=== PATIENT | female | born 1975 | race Caucasian/White ===

== ENCOUNTER 2016-08-21 15:01 | Emergency (ER) | payer OTHER ==
[2016-08-21] MEDS ORDERED: diphenhydrAMINE INJ 50 MG/ML VIAL IVP STA (16:51)
[2016-08-21] MEDS ORDERED: SODIUM CHLORIDE 0.9% 1,000 ML IV ONE (16:51)
[2016-08-21] MEDS ORDERED: PROCHLORPERAZINE 10 MG/2 ML VIAL IVP STA (16:51)
[2016-08-21] MEDS ORDERED: ACETAMINOPHEN 1,000 MG/100 ML 100 ML IV STA (16:51)
[2016-08-21] MEDS ORDERED: PROCHLORPERAZINE 10 MG/2 ML VIAL ONE (16:55)
[2016-08-21] MEDS ORDERED: diphenhydrAMINE INJ 50 MG/ML VIAL ONE (16:55)
[2016-08-21] MEDS ORDERED: ACETAMINOPHEN 1,000 MG/100 ML 100 ML IV ONE (16:55)
== END 2016-08-21 18:28 | disposition home or self-care (01) ==
DX: R51 Headache (principal)
CPT/HCPCS: 36415; 80048; 85025; 96374; 96375; 99283; 99284; J0131

== ENCOUNTER 2016-09-17 07:38 | Outpatient (CLI) | payer OTHER | END 2016-09-17 07:39 | disposition home or self-care (01) | DX: R51 Headache (principal) ==

== ENCOUNTER 2016-10-05 13:55 | Emergency (ER) | payer OTHER ==
[2016-10-05] MEDS ORDERED: traMADol 50 MG TABLET PO STA (16:01)
[2016-10-05] MEDS ORDERED: traMADol 50 MG TABLET PO ONE (16:06)
== END 2016-10-05 16:30 | disposition home or self-care (01) ==
DX: R51 Headache (principal); K21.9 Gastro-esophageal reflux disease without esophagitis; M79.7 Fibromyalgia
CPT/HCPCS: 99283; A9270

== ENCOUNTER 2016-10-08 19:58 | Emergency (ER) | payer OTHER ==
[2016-10-08] MEDS ORDERED: NEOMYCIN/POLYMYX/HC OTIC DROPS RIGHTEAR STA (20:25)
[2016-10-08] MEDS ORDERED: NEOMYCIN/POLYMYX/HC OTIC DROPS ONE (20:34)
== END 2016-10-08 20:41 | disposition home or self-care (01) ==
DX: H60.501 Unspecified acute noninfective otitis externa, right ear (principal)
CPT/HCPCS: 99283; A9270

== ENCOUNTER 2017-02-14 05:54 | Emergency (ER) | payer OTHER ==
[2017-02-14] MEDS ORDERED: SODIUM CHLORIDE 0.9% 1,000 ML IV ONE (06:09)
[2017-02-14] MEDS ORDERED: ONDANSETRON 4 MG/2 ML VIAL IVP STA (06:09)
[2017-02-14] MEDS ORDERED: PROCHLORPERAZINE INJ 10 MG in SODIUM CHLORIDE 0.9% 50 ML IV ONE (06:20)
[2017-02-14] MEDS ORDERED: diphenhydrAMINE INJ 50 MG/ML VIAL IVP STA (06:20)
[2017-02-14] MEDS ORDERED: diphenhydrAMINE INJ 50 MG/ML VIAL ONE (06:27)
[2017-02-14] MEDS ORDERED: ONDANSETRON 4 MG/2 ML VIAL ONE (06:28)
[2017-02-14] MEDS ORDERED: PROCHLORPERAZINE 10 MG/2 ML VIAL ONE (06:28)
[2017-02-14] MEDS ORDERED: SODIUM CHLORIDE FLUSH 0.9% 10 ML SYRINGE IVP ONE ×2 (06:30→07:57)
--- NOTE | 2017-02-14 06:44 | ED Physician Documentation ---
History of Present Illness - Stated complaint Stated Complaint: VOMITING,DIZZINESS - Chief complaint Chief Complaint: Abd Pain - Additonal information Additional information: Patient is a 41-year-old female with a history of fibromyalgia who presents with acute onset of nausea and vomiting and dizziness. Her said that she was clammy and needed help walking to the bathroom. Patient describes a spinning sensation worse with positional changes. She has a history of the same thing happened years ago when she was diagnosed with vertigo. She denies any headache. There is no chest pain, shortness of breath just nausea vomiting worse with positional changes and a feeling of unsteadiness. There is no focal numbness tingling or weakness. She was well yesterday. She did report having a cold a week or 2 ago that was moderate in severity. Review of systems: For pertinent positive and negatives in the review of systems please see the history of present illness, otherwise all other systems have been reviewed and are negative. Dragon disclaimer: Parts of this medical record were created using voice recognition technology. Because of the inherent limitations of this system, occasional same sounding word substitutions do occur and persist despite proofreading. Please read the document for context. Review of Systems Constitutional: denies: Fever, Chills Cardiac: denies: Chest pain / pressure Respiratory: denies: Dyspnea GI: reports: Nausea, Vomiting. denies: Abdominal Pain Neurologic: reports: Other (Dizziness) PD PAST MEDICAL HISTORY - Past Medical History Past Medical History: Yes Cardiovascular: None Respiratory: None Neuro: None Endocrine/Autoimmune: None GI: GERD : None HEENT: None Psych: Depression Musculoskeletal: Fibromyalgia, Chronic back pain Derm: Eczema - Past Surgical History Past Surgical History: Yes General: Cholecystectomy Ortho: Carpal Tunnel surgery, Other HEENT: Tonsil/Adenoidectomy - Present Medications Home Medications: Ambulatory Orders Medication Instructions Recorded Confirmed Esomeprazole Magnesium [Nexium] 40 mg PO DAILY 10/24/14 10/08/16 Cholecalciferol (Vitamin D3) 5,000 unit PO DAILY 06/28/15 10/08/16 [Vitamin D3] FLUoxetine [PROzac] 80 mg PO DAILY 06/28/15 10/08/16 Propranolol [Inderal] 40 mg PO DAILY 10/05/16 10/08/16 traMADol [Ultram] 50 mg PO Q6H PRN #15 tablet 10/05/16 10/08/16 Meloxicam [Meloxicam] 15 mg ORAL DAILY 10/08/16 10/08/16 Meclizine HCl 25 mg PO TID PRN #14 tab.chew 02/14/17 - Allergies Allergies/Adverse Reactions: Allergies Allergy/AdvReac Type Severity Reaction Status Date / Time hydrocodone bitartrate * AdvReac Unknown Headache Verified 02/14/17 06:00 [From Vicodin] - Social History Does the pt smoke?: No Smoking Status: Never smoker Does the pt drink ETOH?: No Does the pt have substance abuse?: No - Immunizations Immunizations are current?: Yes - POLST Patient has POLST: No PD ED PE NORMAL - Vitals Vital signs reviewed: Yes - General General: Alert and oriented X 3, Other (Patient looks unwell. She is slightly diaphoretic. She is nauseous. She is however alert and oriented and answers questions appropriately judgment mood insight and affect are normal) - HEENT HEENT: Atraumatic, PERRL, EOMI, Ears normal, Dentition benign - Neck Neck: Supple, no meningeal sign, No bony TTP - Cardiac Cardiac: No murmur - Respiratory Respiratory: No respiratory distress, Clear bilaterally - Abdomen Abdomen: Non distended - Rectal Rectal: Deferred - Back Back: No CVA TTP - Derm Derm: Normal color, Warm and dry - Extremities Extremities: No deformity, No tenderness to palpate, Normal ROM s pain, No edema - Neuro Neuro: Alert and oriented X 3, No motor deficit, No sensory deficit - Psych Psych: Normal mood, Normal affect Results - Vitals Vitals: Vital Signs - 24 hr 02/14/17 05:59 Temperature 36.6 C Heart Rate 88 Respiratory 20 Rate Blood Pressure 139/91 H O2 Saturation 97 Oxygen O2 Source Room air PD MEDICAL DECISION MAKING - ED course Complexity details: reviewed old records, reviewed results, re-evaluated patient , d/w patient ED course: Patient is a 41-year-old female who for the most part is pretty healthy. She was in her normal state of health when she had acute onset of nausea vomiting and dizziness early this morning. The symptoms are worse with movement and positional changes. She denies any headache chest pain or shortness of breath. On initial evaluation the patient is bent over the chair with some nausea. Quick neurologic cardiac pulmonary gastrointestinal exam is unremarkable. There was elicitation and recurrence of symptoms with moving her head and extraocular movement testing. I suspect this patient probably more likely than not has a peripheral vestibular problem. At this point in time I will try and get her comfortable with IV fluids antiemetics and vestibular stabilizers. Routine labs have been ordered and are pending. I think if this patient feels better she can easily be discharged home she is low risk for central vertigo. Disposition to home pending clinical improvement Clinical impression: 1. Peripheral vertigo Departure - Departure Clinical Impression: Peripheral positional vertigo Qualifiers: Laterality: unspecified laterality Qualified Code(s): H81.399 - Other peripheral vertigo, unspecified ear Condition: Good Instructions: ED Vertigo Unspecified Follow-Up: REENA GIBBONS [Primary Care Provider] - Prescriptions: Meclizine HCl 25 mg PO TID PRN #14 tab.chew PRN Reason: Vertigo
[2017-02-14 06:49] LABS: BASOPHILS # (AUTO) 0.1 10^3/uL (0.0-0.1); BASOPHILS % (AUTO) 0.9 %; EOSINOPHILS # (AUTO) 0.3 10^3/uL (0.0-0.7); EOSINOPHILS % (AUTO) 4.5 %; HCT - HEMATOCRIT 37.7 % (37.0-47.0); LYMPHOCYTES # (AUTO) 2.4 10^3/uL (1.5-3.5); LYMPHOCYTES % (AUTO) 33.3 %; MEAN CORPUSCULAR HEMOGLOBIN 30.1 pg (27.0-31.0); MEAN CORPUSCULAR HGB CONC 34.3 g/dL (32.0-36.0); MEAN CORPUSCULAR VOLUME 87.5 fL (81.0-99.0); MEAN PLATELET VOLUME 7.1 fL (7.9-10.8); MONOCYTES # (AUTO) 0.6 10^3/uL (0.0-1.0); MONOCYTES % (AUTO) 7.8 %; NEUTROPHILS # (AUTO) 3.9 10^3/uL (1.5-6.6); NEUTROPHILS % (AUTO) 53.5 %; NUCLEATED RED BLOOD CELLS AUTO 0.1 /100WBC; RED BLOOD COUNT 4.31 10^6/uL (4.20-5.40); RED CELL DISTRIBUTION WIDTH 12.7 % (12.0-15.0); UNCORRECTED WHITE BLOOD COUNT 7.2 x10^3/uL; WHITE BLOOD COUNT 7.2 x10^3/uL (4.8-10.8)
[2017-02-14 07:03] LABS: ALBUMIN/GLOBULIN RATIO 1.1 (1.0-2.2); BILIRUBIN,TOTAL 0.7 mg/dL (0.2-1.0); CALCIUM 9.1 mg/dL (8.5-10.3); CREATININE 0.8 mg/dL (0.4-1.0); POTASSIUM 3.5 mmol/L (3.5-5.0); TOTAL PROTEIN 7.4 g/dL (6.7-8.2)
[2017-02-14] MEDS ORDERED: diazePAM INJ 5 MG/ML SYRINGE IVP STA (07:46)
[2017-02-14] MEDS ORDERED: MECLIZINE 12.5 MG TABLET PO STA (07:46)
[2017-02-14] MEDS ORDERED: diazePAM INJ 5 MG/ML SYRINGE ONE (07:55)
[2017-02-14] MEDS ORDERED: MECLIZINE 12.5 MG TABLET PO ONE (07:55)
[2017-02-14 08:22] LABS: BILIRUBIN,URINE NEGATIVE (NEGATIVE); PH,URINE 7.5 PH (5.0-7.5)
[2017-02-14 08:27] LABS: UA w/ MICROSCOPIC CHARGE YES
[2017-02-14 08:31] LABS: UR CULTURE IF IND NOT INDICATED
--- NOTE | 2017-02-14 09:02 | ED Physician Documentation ---
ED Addendum - Addendum Addendum: 02/14/17 09:01 The patient was only slightly improved with the first medications she had. Still having spinning vertigo symptoms with head motion. No focal deficit on neuro exam. She denies any visual changes. She was given meclizine p.o. and diazepam 2.5 mg IV and had a better improvement. She is slightly sleepy with just slight dizziness but feels able to head home.
[2017-02-14 09:10] VITALS: BP 133/87
== END 2017-02-14 09:10 | disposition home or self-care (01) ==
LOC: ED 05:54
DX: H81.399 Other peripheral vertigo, unspecified ear (principal)
CPT/HCPCS: 36415; 80053; 81001; 83690; 85025; 96365; 96375; 99283; 99284; A9270; J7040; 81003; 87086

== ENCOUNTER 2017-03-14 16:47 | Emergency (ER) | payer OTHER ==
[2017-03-14] MEDS ORDERED: PROCHLORPERAZINE 10 MG/2 ML VIAL IVP STA (19:03)
[2017-03-14] MEDS ORDERED: SODIUM CHLORIDE 0.9% 1,000 ML IV ONE (19:03)
[2017-03-14] MEDS ORDERED: diphenhydrAMINE INJ 50 MG/ML VIAL IVP STA (19:03)
--- NOTE | 2017-03-14 19:06 | ED Physician Documentation ---
PD HPI HEADACHE - Stated complaint Stated Complaint: HEADACHE/DIZZY - Chief complaint Chief Complaint: Neuro - History obtained from History obtained from: Patient - History of Present Illness Timing - onset: Other (41-year-old woman who is dealing with headaches back in August, had an MRI at that time which was negative per her. For the last month she has been dealing with constant daily headache, retro-orbital and global with light sensitivity and some nausea and occasional vertigo, the vertigo is fleeting lasting 15 seconds at a time and worse if she tilts her head back or turns her head to the right. No URI symptoms or fevers.) - Treatment prior to arrival Treatment prior to arrival: The headache is not positional, it is no worse sitting up or laying flat Review of Systems Ten Systems: 10 systems reviewed and negative Constitutional: reports: Reviewed and negative Throat: reports: Reviewed and negative Cardiac: reports: Reviewed and negative Respiratory: reports: Reviewed and negative PD PAST MEDICAL HISTORY - Past Medical History Cardiovascular: None Respiratory: None Neuro: None Endocrine/Autoimmune: None GI: GERD : None HEENT: None Psych: Depression Musculoskeletal: Fibromyalgia, Chronic back pain Derm: Eczema - Past Surgical History Past Surgical History: Yes General: Cholecystectomy Ortho: Carpal Tunnel surgery, Other HEENT: Tonsil/Adenoidectomy - Present Medications Home Medications: Ambulatory Orders Medication Instructions Recorded Confirmed Esomeprazole Magnesium [Nexium] 40 mg PO DAILY 10/24/14 03/14/17 Cholecalciferol (Vitamin D3) 5,000 unit PO DAILY 06/28/15 03/14/17 [Vitamin D3] FLUoxetine [PROzac] 80 mg PO DAILY 06/28/15 03/14/17 Propranolol [Inderal] 40 mg PO DAILY 10/05/16 03/14/17 traMADol [Ultram] 50 mg PO Q6H PRN #15 tablet 10/05/16 03/14/17 Meloxicam [Meloxicam] 15 mg ORAL DAILY 10/08/16 03/14/17 Meclizine HCl 25 mg PO TID PRN #14 tab.chew 02/14/17 03/14/17 Codeine/Butalbital/ASA/Caffein 1 each PO Q4H PRN #10 capsule 03/14/17 [Fiorinal with Codeine #3 Cap] Gabapentin 300 mg PO DAILY 03/14/17 03/14/17 Promethazine [Phenergan] 25 - 50 mg PO Q6H PRN #15 tab 03/14/17 Sumatriptan [Imitrex] 25 mg PO BID PRN #10 tablet 03/14/17 - Allergies Allergies/Adverse Reactions: Allergies Allergy/AdvReac Type Severity Reaction Status Date / Time hydrocodone bitartrate * AdvReac Unknown Headache Verified 02/14/17 06:00 [From Vicodin] - Social History Does the pt smoke?: No Smoking Status: Never smoker Does the pt drink ETOH?: No Does the pt have substance abuse?: No - Immunizations Immunizations are current?: Yes - POLST Patient has POLST: No PD ED PE NORMAL - Vitals Vital signs reviewed: Yes - General General: Alert and oriented X 3, No acute distress - HEENT HEENT: PERRL, EOMI, Pharynx benign - Neck Neck: Supple, no meningeal sign, No bony TTP - Extremities Extremities: Other (Normal finger to nose and heel to owens testing) - Neuro Neuro: Alert and oriented X 3, 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 She is awaiting an MRI but in the meantime is looking for some help with the headache. She was administered IV fluids, Compazine and Benadryl with improvement in her vertigo and modest improvement in her headache and this was followed by Toradol. Departure - Departure Disposition: 01 Home, Self Care Clinical Impression: Peripheral positional vertigo Qualifiers: Laterality: right Qualified Code(s): H81.391 - Other peripheral vertigo, right ear Headache Qualifiers: Headache type: tension-type Headache chronicity pattern: chronic headache Intractability: intractable Qualified Code(s): G44.221 - Chronic tension-type headache, intractable Condition: Good Record reviewed to determine appropriate education?: Yes Instructions: ED Cephalgia Unspecified Prescriptions: Codeine/Butalbital/ASA/Caffein [Fiorinal with Codeine #3 Cap] 1 each PO Q4H PRN #10 capsule PRN Reason: Headache Sumatriptan [Imitrex] 25 mg PO BID PRN #10 tablet PRN Reason: Headache Promethazine [Phenergan] 25 - 50 mg PO Q6H PRN #15 tab PRN Reason: Nausea / Vomiting Comments: Call your doctor to arrange a follow-up appointment, make the next available appointment. In the interim, return anytime if worse or if new symptoms develop.
[2017-03-14] MEDS ORDERED: PROCHLORPERAZINE 10 MG/2 ML VIAL ONE (19:21)
[2017-03-14] MEDS ORDERED: diphenhydrAMINE INJ 50 MG/ML VIAL ONE (19:21)
[2017-03-14] MEDS ORDERED: KETOROLAC 30 MG/ML VIAL IVP STA (20:28)
[2017-03-14] MEDS ORDERED: KETOROLAC 30 MG/ML VIAL ONE (20:44)
[2017-03-14 20:56] VITALS: BP 115/63
== END 2017-03-14 21:01 | disposition home or self-care (01) ==
LOC: ED 16:47
DX: H81.391 Other peripheral vertigo, right ear (principal); G44.221 Chronic tension-type headache, intractable; G89.29 Other chronic pain; M79.7 Fibromyalgia
CPT/HCPCS: 96374; 96375; 99283; 99284

== ENCOUNTER 2017-04-03 12:52 | Outpatient (CLI) | payer OTHER ==
[~2017-04-03 12:52] MED LIST: GADOBUTROL 15 MMOL/15 ML VIAL ONE
[2017-04-03] MEDS ORDERED: GADOBUTROL 15 MMOL/15 ML VIAL IVP ONE (14:07)
--- NOTE | 2017-04-03 18:08 | MRI Report ---
EXAM: LEFT ANKLE/HINDFOOT MRI WITHOUT CONTRAST EXAM DATE: 04/03/2017 01:40 PM. CLINICAL HISTORY: Asymptomatic varicose veins of unspecified lower extremity. COMPARISON: None. TECHNIQUE: Multiplanar, multisequence T1-weighted and fluid-sensitive sequences of the ankle/hindfoot without contrast. Other: None. FINDINGS: Bones: No fractures. Metallic artifact seen at the first MTP joint, from previous surgery. No areas o f abnormal marrow edema. Articular Cartilage: Unremarkable. Ligaments: The anterior and posterior tibiofibular, anterior and posterior talofibular, and calcaneof ibular ligaments are intact. The deep and superficial deltoid and spring ligaments are intact. Anterior Tendons: Tibialis anterior and extensor hallucis longus tendons appear unremarkable. Extenso r digitorum longus tendon also is normal. The area of concern at the ankle corresponds to a large flu id-filled tendon sheath involving the extensor digitorum longus tendons and tendon slips. Please see series 901 image 26. This measures 3.0 x 2.0 cm transversely and extends for a cephalocaudal distance of 5.9 cm. Medial Tendons: The tibialis posterior, flexor digitorum longus, and flexor hallucis longus tendons a re unremarkable. Lateral Tendons: The peroneus brevis and longus are unremarkable. Achilles Tendon: The Achilles tendon is unremarkable. Musculature: No edema or fatty atrophy. Other: No effusions. The contents of the sinus tarsi and tarsal tunnel are unremarkable. No plantar f asciitis. The subcutaneous tissues are unremarkable. IMPRESSION: 1. Focal area of concern corresponds to a large amount of fluid in the tendon sheath of the extensor digitorum longus tendon and the tendon slips. This measures 3.0 x 2.0 cm transverse and extends for a cephalocaudal distance of about 5.9 cm. 2. Remainder of the tendons of plantar flexion and anteflexion appear normal. No significant bony abn ormalities. Medial and lateral collateral ligament complexes are also unremarkable. [facility] Referring Provider Line: [phone] SITE ID: [id number]
--- NOTE | 2017-04-03 21:51 | MRI Report ---
EXAM: MRI BRAIN AND INTERNAL AUDITORY CANAL (IAC) EXAM DATE: 04/03/2017 02:28 PM. CLINICAL HISTORY: Report of vertigo, dizziness and symptoms described as bilateral ear muffling. COMPARISON: MRI of the brain without contrast 09/17/2016. TECHNIQUE: Multiplanar, multisequence T1-weighted and fluid-sensitive MRI sequences of the brain and IACs were performed. Other: None. IV Contrast: Without and with 11 mL Gadavist. FINDINGS: Normal contours of the canalicular and cisternal segments of the seventh and eighth cranial nerves. F luid signal is present within the inner ear structures bilaterally as expected. There is no evidence for abnormal enhancement or enhancing mass or nodule in the regions of the internal auditory canals o r cerebellopontine angle cisterns. MRI imaging of the whole brain postcontrast is moderately motion limited but reveals no focal masslik e enhancement and there is contrast opacification of the major dural venous sinuses as expected. Stable MRI appearance of the brain. No hemorrhage, stroke, atrophy or hydrocephalus. Stable minimal n onspecific white matter T2 hyperintensities. No evidence for acute sinus or mastoid disease. IMPRESSION: No acute abnormality or significant change. Unremarkable findings in the regions of the i nternal auditory canals before and after contrast. [facility] Referring Provider Line: [phone] SITE ID: [id number]
== END 2017-04-03 12:53 | disposition home or self-care (01) ==
LOC: DI 12:52
PROVIDERS: ATTEND Family Medicine
DX: H81.10 Benign paroxysmal vertigo, unspecified ear (principal); M25.572 Pain in left ankle and joints of left foot
CPT/HCPCS: 70543; 73721; A9585

== ENCOUNTER 2017-06-22 07:34 | Emergency (ER) | payer OTHER ==
[2017-06-22 07:45] VITALS: BP 127/77
[2017-06-22] MEDS ORDERED: DEXAMETHASONE 10 MG/ML VIAL PO STA (08:02)
--- NOTE | 2017-06-22 08:05 | ED Physician Documentation ---
PD HPI HEENT - Stated complaint Stated Complaint: SOA,SORE THROAT - Chief complaint Chief Complaint: Resp - History obtained from History obtained from: Patient - History of Present Illness Timing - onset: How many days ago (5) Timing - duration: Days (5) Timing - details: Gradual onset, Still present Location: Sinuses, Throat Improves: Medication Worsens: Swalllowing Associated symptoms: Fever, Congestion, Rhinorrhea, Cough Similar symptoms before: Diagnosis (sinusitis/otitis) Recently seen: Not recently seen - Additional information Additional information: 41-year-old female has been sick with a cough and congestion for the past 5 days she has had some sinus pressure she is coughing up some orange phlegm and she does not feel that she has shortness of breath that would require the use of an inhaler. Her seems to be getting sick with a similar illness. Review of Systems Constitutional: reports: Fever, Chills Eyes: denies: Decreased vision Ears: denies: Ear pain Nose: reports: Rhinorrhea / runny nose, Congestion, Sinus pressure / pain Throat: reports: Sore throat Cardiac: denies: Chest pain / pressure, Palpitations Respiratory: reports: Cough. denies: Dyspnea GI: denies: Vomiting PD PAST MEDICAL HISTORY - Past Medical History Past Medical History: Yes Cardiovascular: None Respiratory: None Neuro: None Endocrine/Autoimmune: None GI: GERD : None HEENT: None Psych: Depression Musculoskeletal: Fibromyalgia, Chronic back pain Derm: Eczema - Past Surgical History Past Surgical History: Yes General: Cholecystectomy Ortho: Carpal Tunnel surgery, Other HEENT: Tonsil/Adenoidectomy - Present Medications Home Medications: Ambulatory Orders Medication Instructions Recorded Confirmed Cholecalciferol (Vitamin D3) 5,000 unit PO DAILY 06/28/15 06/22/17 [Vitamin D3] FLUoxetine [PROzac] 80 mg PO DAILY 06/28/15 06/22/17 Meclizine HCl 25 mg PO TID PRN #14 tab.chew 02/14/17 06/22/17 Codeine/Butalbital/ASA/Caffein 1 each PO Q4H PRN #10 capsule 03/14/17 06/22/17 [Fiorinal with Codeine #3 Cap] Aspirin EC [Ecotrin] 325 mg PO DAILY 06/22/17 06/22/17 Azithromycin [Zithromax] 250 mg PO DAILY #6 tablet 06/22/17 - Allergies Allergies/Adverse Reactions: Allergies Allergy/AdvReac Type Severity Reaction Status Date / Time hydrocodone bitartrate * AdvReac Unknown Headache Verified 06/22/17 07:43 [From Vicodin] - Social History Does the pt smoke?: No Smoking Status: Never smoker Does the pt drink ETOH?: No Does the pt have substance abuse?: No - Immunizations Immunizations are current?: Yes - POLST Patient has POLST: No PD ED PE NORMAL - Vitals Vital signs reviewed: Yes (normal ) - General General: Alert and oriented X 3, Well developed/nourished, Other (flat affect of illness) - HEENT HEENT: Atraumatic, PERRL, EOMI, Other (the right TM is inflamed the left is clear and the pharynx is with erythema and swelling of the uvula) - Neck Neck: Supple, no meningeal sign, No bony TTP - Cardiac Cardiac: RRR, No murmur - Respiratory Respiratory: No respiratory distress, Clear bilaterally - Abdomen Abdomen: Soft, Non tender, No organomegaly - Back Back: No CVA TTP, No spinal TTP - Derm Derm: Normal color, Warm and dry, No rash - Extremities Extremities: No deformity, No edema - Neuro Neuro: Alert and oriented X 3, scientific writer 2-12 intact, No motor deficit, No sensory deficit, Normal speech Eye Opening: Spontaneous Motor: Obeys Commands Verbal: Oriented GCS Score: 15 - Psych Psych: Normal mood, Normal affect Results - Vitals Vitals: Vital Signs - 24 hr 06/22/17 07:39 Temperature 36.7 C Heart Rate 84 Respiratory 18 Rate Blood Pressure 127/77 O2 Saturation 97 Oxygen O2 Source Room air PD MEDICAL DECISION MAKING - ED course Complexity details: reviewed old records, considered differential, d/w patient ED course: 41 y/o female with cough and congestion and a sore throat has OM on exam and is given decadron 10mg PO and we will put her on some zithromax. Departure - Departure Disposition: 01 Home, Self Care Clinical Impression: Otitis media Condition: Stable Instructions: ED Otitis Media Acute Adult Follow-Up: REENA GIBBONS [Primary Care Provider] - Prescriptions: Azithromycin [Zithromax] 250 mg PO DAILY #6 tablet
[2017-06-22 08:16] LABS: RAPID STREP SCREEN REAGENT QC YELLOW (YELLOW)
== END 2017-06-22 08:12 | disposition home or self-care (01) ==
LOC: ED 07:34
DX: H66.91 Otitis media, unspecified, right ear (principal)
CPT/HCPCS: 87070; 87430; 99283

== ENCOUNTER 2017-07-14 16:35 | Emergency (ER) | payer OTHER ==
[2017-07-14] MEDS ORDERED: traMADol 50 MG TABLET PO STA (17:03)
--- NOTE | 2017-07-14 17:05 | ED Physician Documentation ---
PD HPI URI - Stated complaint Stated Complaint: CHEST PRESSURE/PAIN - Chief complaint Chief Complaint: Resp - History obtained from History obtained from: Patient - History of Present Illness Timing - onset: Other (Sick for 2 days with sinus congestion, cough, fevers, body aches. Not dyspnea. Has been exposed to URI by family.) Review of Systems Constitutional: reports: Fever, Chills, Myalgias, Fatigue Ears: denies: Ear pain Nose: reports: Rhinorrhea / runny nose, Congestion, Sinus pressure / pain Throat: denies: Sore throat Respiratory: reports: Cough GI: denies: Abdominal Pain PD PAST MEDICAL HISTORY - Past Medical History Cardiovascular: None Respiratory: None Neuro: None Endocrine/Autoimmune: None GI: GERD : None HEENT: None Psych: Depression Musculoskeletal: Fibromyalgia, Chronic back pain Derm: Eczema - Past Surgical History Past Surgical History: Yes General: Cholecystectomy Ortho: Carpal Tunnel surgery, Other HEENT: Tonsil/Adenoidectomy - Present Medications Home Medications: Ambulatory Orders Medication Instructions Recorded Confirmed Cholecalciferol (Vitamin D3) 5,000 unit PO DAILY 06/28/15 07/14/17 [Vitamin D3] FLUoxetine [PROzac] 80 mg PO DAILY 06/28/15 07/14/17 Meclizine HCl 25 mg PO TID PRN #14 tab.chew 02/14/17 07/14/17 Codeine/Butalbital/ASA/Caffein 1 each PO Q4H PRN #10 capsule 03/14/17 07/14/17 [Fiorinal with Codeine #3 Cap] Aspirin EC [Ecotrin] 325 mg PO DAILY 06/22/17 07/14/17 Amox/Clav 875/125 [Augmentin] 1 each PO Q12H #20 tablet 07/14/17 Fluticasone [Flonase] DAILY 07/14/17 Prednisone 07/14/17 traMADol [Ultram] 50 mg PO Q4-6H PRN #15 tablet 07/14/17 - Allergies Allergies/Adverse Reactions: Allergies Allergy/AdvReac Type Severity Reaction Status Date / Time hydrocodone bitartrate * AdvReac Unknown Headache Verified 06/22/17 07:43 [From Vicodin] - Social History Does the pt smoke?: No Smoking Status: Never smoker Does the pt drink ETOH?: No Does the pt have substance abuse?: No - Immunizations Immunizations are current?: Yes - POLST Patient has POLST: No PD ED PE NORMAL - Vitals Vital signs reviewed: Yes - General General: Alert and oriented X 3, No acute distress - HEENT HEENT: PERRL, EOMI - Neck Neck: Supple, no meningeal sign, No bony TTP - Cardiac Cardiac: RRR, No murmur - Respiratory Respiratory: No respiratory distress, Clear bilaterally - Abdomen Abdomen: Non tender - Derm Derm: No rash - Neuro Neuro: Alert and oriented X 3, Normal speech Results - Vitals Vitals: Vital Signs - 24 hr 07/14/17 16:39 Temperature 36.4 C L Heart Rate 81 Respiratory 16 Rate Blood Pressure 128/87 H Oxygen O2 Source Room air - EKG (time done) 1643 Rate: Rate (enter#) (76) Rhythm: NSR [place]: Normal Intervals: Normal IA QRS: Normal Ischemia: Normal ST segments Computer interpretation: Agree with computer - Labs Labs: Laboratory Tests 07/14/17 17:05 Influenza A (Rapid) Negative Influenza B (Rapid) Negative Influenza Types A,B Ag - Departure - Departure Disposition: 01 Home, Self Care Clinical Impression: Sinusitis Qualifiers: Sinusitis location: maxillary Chronicity: acute Recurrence: recurrent Qualified Code(s): J01.01 - Acute recurrent maxillary sinusitis Condition: Good Record reviewed to determine appropriate education?: Yes Instructions: ED Sinusitis Abx Tx Prescriptions: Amox/Clav 875/125 [Augmentin] 1 each PO Q12H #20 tablet traMADol [Ultram] 50 mg PO Q4-6H PRN #15 tablet PRN Reason: Pain Comments: Call your doctor to arrange a follow-up appointment, make the next available appointment. In the interim, return anytime if worse or if new symptoms develop. Your blood pressure was elevated today on check into the emergency department. This does not mean that you have hypertension, it is a common phenomenon to come to the emergency department and have elevated blood pressure. I recommend that you see your primary care physician within the week to have it rechecked when you are feeling better.
[2017-07-14] MEDS ORDERED: AMOX/CLAV 875 MG/125 MG TABLET PO STA (17:34)
[2017-07-14 17:52] VITALS: BP 110/66
== END 2017-07-14 17:51 | disposition home or self-care (01) ==
LOC: ED 16:35
DX: J01.01 Acute recurrent maxillary sinusitis (principal); R03.0 Elevated blood-pressure reading, without diagnosis of hypertension; K21.9 Gastro-esophageal reflux disease without esophagitis; M79.7 Fibromyalgia; Z79.82 Long term (current) use of aspirin
CPT/HCPCS: 87275; 87276; 93005; 99283; 99284; A9270

== ENCOUNTER 2017-11-30 13:03 | Outpatient (CLI) | payer OTHER | END 2017-11-30 13:04 | disposition critical access hospital (66) | LOC: EMS 13:03 | PROVIDERS: ATTEND Surgery | DX: R07.9 Chest pain, unspecified (principal); M54.9 Dorsalgia, unspecified; V86.65XA Passenger of 3- or 4- wheeled all-terrain vehicle (ATV) injured in nontraffic accident, initial encounter; Y92.015 Private garage of single-family (private) house as the place of occurrence of the external cause | CPT/HCPCS: A0425; A0429 ==

== ENCOUNTER 2017-11-30 13:15 | Emergency (ER) | payer OTHER ==
[2017-11-30] MEDS ORDERED: KETOROLAC 60 MG/2 ML VIAL IM STA (13:44)
[2017-11-30] MEDS ORDERED: oxyCODONE 5 MG TABLET PO STA (13:44)
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
[2017-11-30 15:50] VITALS: BP 129/85
[2017-11-30 16:16] LABS: BILIRUBIN,URINE NEGATIVE (NEGATIVE); GLUCOSE, URINE (UA) NEGATIVE (NEGATIVE); KETONES,URINE (UA) TRACE mg/dL (NEGATIVE); LEUKOCYTE ESTERASE, URINE NEGATIVE (NEGATIVE); NITRITE,URINE NEGATIVE (NEGATIVE); OCCULT BLOOD,URINE TRACE-INTA (NEGATIVE); PH,URINE 5.5 PH (5.0-7.5); PROTEIN,URINE NEGATIVE (NEGATIVE); UROBILINOGEN,URINE 0.2 (NORMAL) E.U./dL (NORMAL)
[2017-11-30 16:18] LABS: CLARITY,URINE HAZY (CLEAR)
[2017-11-30 16:28] LABS: BACTERIA,URINE Moderate /HPF (None Seen); RBC,URINE 0-5 /HPF (0-5); SQUAMOUS EPITHELIAL CELL,UR MOD Squamous (<= Few)
== END 2017-11-30 16:19 | disposition home or self-care (01) ==
LOC: EDUNIT# → ED 13:15
DX: S20.219A Contusion of unspecified front wall of thorax, initial encounter (principal); S33.5XXA Sprain of ligaments of lumbar spine, initial encounter; V86.95XA Unspecified occupant of 3- or 4- wheeled all-terrain vehicle (ATV) injured in nontraffic accident, initial encounter
CPT/HCPCS: 71046; 72100; 72170; 81001; 96372; 99283; 99284; A9270; 81003; 87086

== ENCOUNTER 2018-04-28 02:31 | Emergency (ER) | payer OTHER ==
--- NOTE | 2018-04-28 02:49 | ED Physician Documentation ---
PD HPI BACK PAIN - Stated complaint Stated Complaint: BACK SPASMS - Chief complaint Chief Complaint: Back Pain - History obtained from History obtained from: Patient - History of Present Illness Timing - onset: How many weeks ago (3) Timing - duration: Weeks Timing - details: Gradual onset, Waxing and waning Pain level max: 10 Pain level now: 8 Location: Lower, Right, Left Quality: Pain, Spasm Associated symptoms: No: Fever, Weakness, Numbness, Incontinent of urine, Unable to urinate, Hematuria, Incontinent of stool Improves with: Rest Worsened by: Movement Similar symptoms before: Diagnosis (chronic back pain) Recently seen: Clinic ([facility]) - Additional information Additional information: patient has been having exacerbation of her chronic low back and bilateral hip pain x 3 weeks. she says she gets similar episodes 2-3 times per year. she was evaluated at [facility] 2 days ago (Saturday) and had lumbar xrays, does not know result. she was prescribed valium which she filled but has not taken yet. 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 pain is across lower back and radiates to both hips and down both legs Review of Systems Constitutional: reports: Reviewed and negative Cardiac: reports: Reviewed and negative Respiratory: reports: Reviewed and negative GI: reports: Reviewed and negative : denies: Dysuria, Frequency, Incontinent Musculoskeletal: reports: Back pain Neurologic: denies: Generalized weakness, Focal weakness, Numbness PD PAST MEDICAL HISTORY - Past Medical History Cardiovascular: None Respiratory: None Endocrine/Autoimmune: None GI: GERD : None HEENT: None Psych: Depression Musculoskeletal: Fibromyalgia, Chronic back pain Derm: Eczema - Past Surgical History Past Surgical History: Yes General: Cholecystectomy Ortho: Carpal Tunnel surgery, Other HEENT: Tonsil/Adenoidectomy - Present Medications Home Medications: Ambulatory Orders Medication Instructions Recorded Confirmed FLUoxetine [PROzac] 80 mg PO DAILY 06/28/15 07/14/17 Cyclobenzaprine [Flexeril] 10 mg PO TID PRN #20 tablet 11/30/17 Ibuprofen [Motrin] 400 mg PO Q6H PRN #30 tablet 11/30/17 Lidocaine Patch 5% [Lidoderm Patch] 1 each TOP DAILY PRN #10 patch 11/30/17 Pantoprazole [Protonix] 20 mg DAILY 11/30/17 11/30/17 oxyCODONE/ACET 5/325 [Percocet 5 1 - 2 each PO Q6H PRN #14 tablet 04/28/18 mg/325 mg] traMADol [Ultram] 50 - 100 mg PO Q6H PRN #20 tablet 04/28/18 - Allergies Allergies/Adverse Reactions: Allergies Allergy/AdvReac Type Severity Reaction Status Date / Time hydrocodone bitartrate * AdvReac Unknown Headache Verified 04/28/18 02:38 [From Vicodin] - Social History Does the pt smoke?: No Smoking Status: Never smoker Does the pt drink ETOH?: No Does the pt have substance abuse?: No - Immunizations Immunizations are current?: Yes - POLST Patient has POLST: No PD ED PE NORMAL - Vitals Vital signs reviewed: Yes - General General: Alert and oriented X 3, Well developed/nourished, Other (obvious moderate/severe painful distress) - Cardiac Cardiac: RRR, No murmur - Respiratory Respiratory: No respiratory distress, Clear bilaterally - Abdomen Abdomen: Soft, Non tender - Back Back: No CVA TTP, No spinal TTP - Derm Derm: Normal color, Warm and dry, No rash - Extremities Extremities: No edema - Neuro Neuro: Alert and oriented X 3, No motor deficit, No sensory deficit Results - Vitals Vitals: Vital Signs - 24 hr 04/28/18 04/28/18 04/28/18 02:35 06:16 07:36 Temperature 36.6 C Heart Rate 88 84 78 Respiratory 18 18 16 Rate Blood Pressure 146/72 H 127/81 H 132/89 H O2 Saturation 98 97 Oxygen O2 Source Room air - Labs Labs: Laboratory Tests 04/28/18 04/28/18 04/28/18 05:10 06:15 06:15 WBC 7.9 RBC 4.04 L Hgb 12.5 Hct 35.1 L MCV 86.9 MCH 30.9 MCHC 35.6 RDW 13.2 Plt Count 304 MPV 6.7 L Neut # (Auto) 4.5 Lymph # (Auto) 2.5 [place] # (Auto) 0.6 Eos # (Auto) 0.3 Baso # (Auto) 0.0 Absolute Nucleated RBC 0.00 Nucleated RBC % 0.1 Sodium 137 Potassium 4.2 Chloride 104 Carbon Dioxide 24 Anion Gap 9.0 BUN 19 Creatinine 0.8 Estimated GFR (MDRD) 78 L Glucose 117 H Calcium 8.7 Total Bilirubin 0.7 AST 24 ALT 27 Alkaline Phosphatase 49 Total Protein 7.1 Albumin 3.8 Globulin 3.3 Albumin/Globulin Ratio 1.2 Lipase 36 Urine Color YELLOW Urine Clarity CLEAR Urine pH 6.0 Ur Specific [place] 1.025 Urine Protein NEGATIVE Urine Glucose (UA) NEGATIVE Urine Ketones NEGATIVE Urine Occult Blood SMALL H Urine Nitrite NEGATIVE Urine Bilirubin NEGATIVE Urine Urobilinogen 0.2 (NORMAL) Ur Leukocyte Esterase NEGATIVE Urine RBC 6-10 H Urine WBC 0-3 Ur Squamous Epith Cells MANY Squamous H Urine Bacteria Rare Ur Microscopic Review INDICATED Urine Culture Comments NOT INDICATED - Rads (name of study) CT A/P Radiology: Prelim report reviewed, See rad report PD MEDICAL DECISION MAKING - ED course Complexity details: reviewed old records, reviewed results, re-evaluated patient, considered differential, d/w patient, d/w family ED course: patient initially had improvement with PO valium and IM dilaudid and was comfortable with plan to d/c with rx for tramadol, but when she ambulated to bathroom, her pain suddenly worsened and she appeared more uncomfortable than initial presentation. she required more medication including repeat doses of valium and dilaudid, and was given tramadol, decadron, and toradol. she did not have adequate relief and thus given IV dilaudid and blood tests and UA ordered. hematuria on UA and thus CT A/P performed, which was unremarkable for acute pathology. she reported good symptomatic relief with the iv dilaudid and was comfortable with d/c home. rx for tramadol and percocet provided. Departure - Departure Disposition: 01 Home, Self Care Clinical Impression: Lumbar radiculopathy Condition: Good Instructions: ED Back Care Tips, ED Spasm Back No Trauma, ED Sciatica Follow-Up: REENA GIBBONS [Primary Care Provider] - Prescriptions: oxyCODONE/ACET 5/325 [Percocet 5 mg/325 mg] 1 - 2 each PO Q6H PRN #14 tablet PRN Reason: Pain traMADol [Ultram] 50 - 100 mg PO Q6H PRN #20 tablet PRN Reason: Pain Discharge Date/Time: 04/28/18 07:37
[2018-04-28] MEDS ORDERED: HYDROmorphone 1 MG/ML CARPUJECT IM STA ×2 (02:58→05:11)
[2018-04-28] MEDS ORDERED: diazePAM 5 MG TABLET PO STA ×2 (02:59→05:22)
[2018-04-28] MEDS ORDERED: HYDROmorphone 1 MG/ML CARPUJECT ONE (03:31)
[2018-04-28] MEDS ORDERED: DEXAMETHASONE 10 MG/ML VIAL PO STA (04:29)
[2018-04-28] MEDS ORDERED: KETOROLAC 60 MG/2 ML VIAL IM STA (04:29)
[2018-04-28] MEDS ORDERED: traMADol 50 MG TABLET PO STA ×2 (04:30→05:22)
[2018-04-28 05:29] LABS: BILIRUBIN,URINE NEGATIVE (NEGATIVE); GLUCOSE, URINE (UA) NEGATIVE (NEGATIVE); KETONES,URINE (UA) NEGATIVE (NEGATIVE); LEUKOCYTE ESTERASE, URINE NEGATIVE (NEGATIVE); NITRITE,URINE NEGATIVE (NEGATIVE); OCCULT BLOOD,URINE SMALL (NEGATIVE); PROTEIN,URINE NEGATIVE (NEGATIVE); UROBILINOGEN,URINE 0.2 (NORMAL) E.U./dL (NORMAL)
[2018-04-28 05:31] LABS: CLARITY,URINE CLEAR (CLEAR)
[2018-04-28 05:36] LABS: BACTERIA,URINE Rare /HPF (None Seen); SQUAMOUS EPITHELIAL CELL,UR MANY Squamous (<= Few)
[2018-04-28] MEDS ORDERED: HYDROmorphone 1 MG/ML CARPUJECT IVP STA (06:07)
[2018-04-28 06:22] LABS: BASOPHILS % (AUTO) 0.4 %; EOSINOPHILS # (AUTO) 0.3 10^3/uL (0.0-0.7); EOSINOPHILS % (AUTO) 3.8 %; HGB - HEMOGLOBIN 12.5 g/dL (12.0-16.0); LYMPHOCYTES # (AUTO) 2.5 10^3/uL (1.5-3.5); LYMPHOCYTES % (AUTO) 32.1 %; MEAN CORPUSCULAR HEMOGLOBIN 30.9 pg (27.0-31.0); MEAN CORPUSCULAR HGB CONC 35.6 g/dL (32.0-36.0); MEAN CORPUSCULAR VOLUME 86.9 fL (81.0-99.0); MEAN PLATELET VOLUME 6.7 fL (7.9-10.8); MONOCYTES # (AUTO) 0.6 10^3/uL (0.0-1.0); NEUTROPHILS # (AUTO) 4.5 10^3/uL (1.5-6.6); NEUTROPHILS % (AUTO) 56.7 %; PLT - PLATELET COUNT 304 10^3/uL (130-450); RED BLOOD COUNT 4.04 10^6/uL (4.20-5.40); RED CELL DISTRIBUTION WIDTH 13.2 % (12.0-15.0); WHITE BLOOD COUNT 7.9 x10^3/uL (4.8-10.8)
[2018-04-28 06:30] LABS: ALBUMIN 3.8 g/dL (3.2-5.5); ALBUMIN/GLOBULIN RATIO 1.2 (1.0-2.2); BILIRUBIN,TOTAL 0.7 mg/dL (0.2-1.0); CALCIUM 8.7 mg/dL (8.5-10.3); CREATININE 0.8 mg/dL (0.4-1.0); TOTAL PROTEIN 7.1 g/dL (6.7-8.2)
--- NOTE | 2018-04-28 06:53 | CT Report ---
Reason: low back pain, hematuria Procedure Date: 04/28/2018 Accession Number: [id number] / [id number] Procedure: CT - Abdomen/Pelvis W/O CPT Code: FULL RESULT: EXAM: CT ABDOMEN AND PELVIS (CT KUB) EXAM DATE: 04/28/2018 06:42 AM. CLINICAL HISTORY: Low back pain, hematuria. COMPARISONS: None. TECHNIQUE: Routine axial helical CT imaging was performed through the abdomen and pelvis without IV contrast. Reconstructions: Coronal and sagittal. In accordance with CT protocol optimization, one or more of the following dose reduction techniques were utilized for this exam: automated exposure control, adjustment of mA and/or KV based on patient size, or use of iterative reconstructive technique. FINDINGS: Lung Bases: Unremarkable. Right Kidney/Ureter: No stones, hydronephrosis, or hydroureter. No perinephric fat stranding. Left Kidney/Ureter: No stones, hydronephrosis, or hydroureter. No perinephric fat stranding. Other Solid Organs: Noncontrast images of the solid organs are grossly unremarkable. Gallbladder/Bile Ducts: Postoperative changes of cholecystectomy. No biliary dilatation. Peritoneal Cavity: No free fluid, free air or dawit adenopathy. Bowel is grossly unremarkable. Pelvic Organs: IUD is present in the uterus. No pelvic adenopathy or free fluid. Vasculature: Unremarkable. Other: None. IMPRESSION: No urinary tract stones or obstruction. [facility]
[2018-04-28 07:37] VITALS: BP 132/89
== END 2018-04-28 07:37 | disposition home or self-care (01) ==
LOC: ED 02:31
DX: M54.16 Radiculopathy, lumbar region (principal); G89.29 Other chronic pain; M54.5 Low back pain
CPT/HCPCS: 36415; 74176; 80053; 81001; 83690; 85025; 96372; 96374; 99283; 99284; A9270; J1170; 81003; 87086

== ENCOUNTER 2018-08-31 18:08 | Emergency (ER) | payer OTHER ==
--- NOTE | 2018-08-31 20:30 | ED Physician Documentation ---
History of Present Illness - Stated complaint Stated Complaint: SOB - Chief complaint Chief Complaint: Resp - History obtained from History obtained from: Patient, Family - History of Present Illness Timing: How many days ago (6) Pain level max: 0 Pain level now: 0 - Additonal information Additional information: 42-year-old female with feelings of dyspnea for the past 5 days. This is been constant. No chest pain. Has had anxiety in the past, but felt different. recently had a cold and she does have some nasal congestion and rhinorrhea. No coughing. Has not used inhalers before.Nothing makes it better. Worse with exertion Review of Systems Constitutional: denies: Fever Nose: reports: Rhinorrhea / runny nose, Congestion Throat: denies: Sore throat Respiratory: reports: Cough (Mild, dry) GI: denies: Nausea, Vomiting Skin: denies: Rash Musculoskeletal: denies: Neck pain, Back pain Neurologic: denies: Headache PD PAST MEDICAL HISTORY - Past Medical History Past Medical History: Yes Cardiovascular: None Respiratory: None Endocrine/Autoimmune: None GI: GERD : None HEENT: None Psych: Depression Musculoskeletal: Fibromyalgia, Chronic back pain Derm: Eczema - Past Surgical History Past Surgical History: Yes General: Cholecystectomy Ortho: Carpal Tunnel surgery, Other HEENT: Tonsil/Adenoidectomy - Present Medications Home Medications: Ambulatory Orders Medication Instructions Recorded Confirmed FLUoxetine [PROzac] 80 mg PO DAILY 06/28/15 08/31/18 Cyclobenzaprine [Flexeril] 10 mg PO TID PRN #20 tablet 11/30/17 08/31/18 Ibuprofen [Motrin] 400 mg PO Q6H PRN #30 tablet 11/30/17 08/31/18 Lidocaine Patch 5% [Lidoderm Patch] 1 each TOP DAILY PRN #10 patch 11/30/17 08/31/18 Pantoprazole [Protonix] 20 mg DAILY 11/30/17 08/31/18 traMADol [Ultram] 50 - 100 mg PO Q6H PRN #20 tablet 04/28/18 08/31/18 Albuterol Sulf [Ventolin Hfa 1 - 2 puffs INH Q4HR PRN #1 inhaler 08/31/18 Inhaler] - Allergies Allergies/Adverse Reactions: Allergies Allergy/AdvReac Type Severity Reaction Status Date / Time hydrocodone bitartrate * AdvReac Unknown Headache Verified 08/31/18 18:22 [From Vicodin] - Social History Does the pt smoke?: No Smoking Status: Never smoker Does the pt drink ETOH?: No Does the pt have substance abuse?: No - Immunizations Immunizations are current?: Yes - POLST Patient has POLST: No PD ED PE NORMAL - Vitals Vital signs reviewed: Yes - General General: Alert and oriented X 3, No acute distress - HEENT HEENT: PERRL, Ears normal, Moist mucous membranes - Neck Neck: Supple, no meningeal sign - Cardiac Cardiac: RRR, Strong equal pulses - Respiratory Respiratory: No respiratory distress, Other (Mildly decreased breath sounds bilaterally.) - Abdomen Abdomen: Soft, Non tender, Non distended - Derm Derm: Warm and dry - Extremities Extremities: No edema, No calf tenderness / cord - Neuro Neuro: Alert and oriented X 3 - Psych Psych: Normal mood, Normal affect Results - Vitals Vitals: Vital Signs - 24 hr 08/31/18 08/31/18 08/31/18 18:20 18:23 20:23 Temperature 36.2 C L Heart Rate 95 95 76 Respiratory 20 20 16 Rate Blood Pressure 147/80 H 147/80 H 129/88 H O2 Saturation 99 99 100 08/31/18 08/31/18 21:40 22:00 Temperature Heart Rate 69 82 Respiratory 10 L 17 Rate Blood Pressure 127/76 O2 Saturation 98 Oxygen O2 Source Room air - EKG (time done) 2030 Rate: Rate (enter#) (74) Rhythm: NSR [place]: Normal Intervals: Normal [place] QRS: Normal Ischemia: Normal ST segments 1830 Rate: Rate (enter#) (86) Rhythm: NSR [place]: Normal Intervals: Normal [place] QRS: Normal Ischemia: Normal ST segments - Labs Labs: Laboratory Tests 08/31/18 08/31/18 08/31/18 20:20 20:20 20:20 WBC 8.2 RBC 4.03 L Hgb 12.4 Hct 35.1 L MCV 87.2 MCH 30.9 MCHC 35.4 RDW 13.1 Plt Count 345 MPV 6.8 L Neut # (Auto) 4.2 Lymph # (Auto) 3.1 [place] # (Auto) 0.7 Eos # (Auto) 0.3 Baso # (Auto) 0.0 Absolute Nucleated RBC 0.00 Nucleated RBC % 0.0 Sodium 135 Potassium 3.6 Chloride 99 L Carbon Dioxide 27 Anion Gap 9.0 BUN 16 Creatinine 0.8 Estimated GFR (MDRD) 78 L Glucose 105 H Calcium 9.0 Total Bilirubin 0.7 AST 25 ALT 30 Alkaline Phosphatase 57 Troponin I < 0.04 Total Protein 7.2 Albumin 3.7 Globulin 3.5 Albumin/Globulin Ratio 1.1 Lipase 35 - Rads (name of study) Chest x-ray Radiology: Prelim report reviewed, EMP read contemporaneously, See rad report (No acute disease) PD MEDICAL DECISION MAKING - ED course Complexity details: reviewed results, re-evaluated patient, considered differential, d/w patient, d/w family ED course: 42-year-old female presents to the emergency department with dyspnea for the past 5 days. Feels better after nebulizer treatment. Will prescribe an inhaler for home. She has been having a viral URI as well. No pneumonia. Will continue supportive care and follow-up with her doctor. She is well-appearing, nontoxic. Afebrile. No hypoxia. No evidence of acute coronary syndrome. Patient counseled regarding signs and symptoms for which I believe and urgent re-evaluation would be necessary. Patient with good understanding of and agreement to plan and is comfortable going home at this time This document was made in part using voice recognition software. While efforts are made to proofread this document, sound alike and grammatical errors may occur. Departure - Departure Disposition: 01 Home, Self Care Clinical Impression: Dyspnea Qualifiers: Dyspnea type: unspecified Qualified Code(s): R06.00 - Dyspnea, unspecified Condition: Good Instructions: ED Dyspnea Shortness of Breath Follow-Up: REENA GIBBONS [Primary Care Provider] - Within 1 week Prescriptions: Albuterol Sulf [Ventolin Hfa Inhaler] 1 - 2 puffs INH Q4HR PRN #1 inhaler PRN Reason: Shortness Of Air/Wheezing Comments: The cause of your symptoms is unclear today. Use the inhaler as needed at home. Follow-up with your doctor for further care. Discharge Date/Time: 08/31/18 22:31
[2018-08-31 20:37] LABS: BASOPHILS % (AUTO) 0.3 %; EOSINOPHILS # (AUTO) 0.3 10^3/uL (0.0-0.7); EOSINOPHILS % (AUTO) 3.3 %; HGB - HEMOGLOBIN 12.4 g/dL (12.0-16.0); LYMPHOCYTES # (AUTO) 3.1 10^3/uL (1.5-3.5); LYMPHOCYTES % (AUTO) 37.4 %; MEAN CORPUSCULAR HEMOGLOBIN 30.9 pg (27.0-31.0); MEAN CORPUSCULAR HGB CONC 35.4 g/dL (32.0-36.0); MEAN CORPUSCULAR VOLUME 87.2 fL (81.0-99.0); MEAN PLATELET VOLUME 6.8 fL (7.9-10.8); MONOCYTES # (AUTO) 0.7 10^3/uL (0.0-1.0); NEUTROPHILS # (AUTO) 4.2 10^3/uL (1.5-6.6); PLT - PLATELET COUNT 345 10^3/uL (130-450); RED BLOOD COUNT 4.03 10^6/uL (4.20-5.40); RED CELL DISTRIBUTION WIDTH 13.1 % (12.0-15.0); WHITE BLOOD COUNT 8.2 x10^3/uL (4.8-10.8)
[2018-08-31 20:50] LABS: ALBUMIN 3.7 g/dL (3.2-5.5); ALBUMIN/GLOBULIN RATIO 1.1 (1.0-2.2); BILIRUBIN,TOTAL 0.7 mg/dL (0.2-1.0); CREATININE 0.8 mg/dL (0.4-1.0); TOTAL PROTEIN 7.2 g/dL (6.7-8.2)
[2018-08-31] MEDS ORDERED: ALBUTEROL NEB 2.5 MG/3 ML INH STA (21:00)
[2018-08-31] MEDS ORDERED: LORazepam 0.5 MG TABLET PO STA (21:01)
--- NOTE | 2018-08-31 21:04 | XRAY Report ---
Reason: dyspnea Procedure Date: 08/31/2018 Accession Number: [id number] / [id number] Procedure: XR - Chest 1 View X-Ray CPT Code: 91036 FULL RESULT: EXAM: CHEST RADIOGRAPHY EXAM DATE: 08/31/2018 08:24 PM. CLINICAL HISTORY: Dyspnea. COMPARISON: CHEST 2 VIEW 11/30/2017 1:50 PM. TECHNIQUE: 1 view. FINDINGS: Heart size is normal. Lung volumes are somewhat low. No consolidation, pleural effusion, or pneumothorax. IMPRESSION: No acute cardiopulmonary findings. [facility]
[2018-08-31 22:08] VITALS: BP 127/76
== END 2018-08-31 22:31 | disposition home or self-care (01) ==
LOC: ED 18:08
DX: R06.00 Dyspnea, unspecified (principal); R05 Cough; R09.81 Nasal congestion; J34.89 Other specified disorders of nose and nasal sinuses; R94.31 Abnormal electrocardiogram [ECG] [EKG]; F41.9 Anxiety disorder, unspecified
CPT/HCPCS: 36415; 71045; 80053; 83690; 84484; 85025; 93005; 94640; 94664; 99283; 99284; A9270

== ENCOUNTER 2019-02-18 08:40 | Emergency (ER) | payer OTHER ==
--- NOTE | 2019-02-18 09:56 | XRAY Report ---
Reason: fall. pain in L elbow and hand Procedure Date: 02/18/2019 Accession Number: [id number] / [id number] Procedure: XR - Hand 3 View LT CPT Code: FULL RESULT: EXAM: LEFT HAND RADIOGRAPHY EXAM DATE: 02/18/2019 09:47 AM. CLINICAL HISTORY: Fall. Pain in left elbow and hand. COMPARISON: None. TECHNIQUE: 3 views. FINDINGS: Bones: Normal. No fractures or bone lesions. Joints: Normal. No subluxations. Soft Tissues: Normal. No soft tissue swelling. IMPRESSION: Normal hand radiography. [facility]
--- NOTE | 2019-02-18 09:57 | XRAY Report ---
Reason: fall. Left elbow pain Procedure Date: 02/18/2019 Accession Number: [id number] / [id number] Procedure: XR - Elbow 3 View LT CPT Code: FULL RESULT: EXAM: LEFT ELBOW RADIOGRAPHY EXAM DATE: 02/18/2019 09:48 AM. CLINICAL HISTORY: Fall. Left elbow pain. COMPARISON: None. TECHNIQUE: 3 views. FINDINGS: Bones: Normal. No fractures or bone lesions. Joints: Normal. No effusion. No subluxation. Soft Tissues: Normal. No soft tissue swelling. IMPRESSION: Normal elbow radiography. [facility]
--- NOTE | 2019-02-18 10:25 | ED Physician Documentation ---
PD HPI UPPER EXT INJURY - Stated complaint Stated Complaint: LT ARM INJURY - Chief complaint Chief Complaint: Trauma Ext - History obtained from History obtained from: Patient - History of Present Illness Location: Left, Elbow, Hand Type of injury: Fall, Twist Where injury occurred: Work Timing - onset: Today Timing - duration: Minutes Timing - details: Abrupt onset, Still present Improved by: Rest, Immobilization Worsened by: Moving, Palpating Associated symptoms: No: Weakness, Numbness Contributing factors: No: Anticoagulated Similar symptoms before: Has not had sx before Recently seen: Not recently seen - Additonal information Additional information: 43-year-old female was walking through [place] [employer] today when she slipped on some oil and fell. She fell onto her outstretched left hand landed on her elbow and her hand slid into a great catching her fingers on her left hand in the great. She has pain in her fingers and pain in her elbow she is able to move the joints through range of motion but this is painful. She does not have any crepitance or obvious fracture. PD PAST MEDICAL HISTORY - Past Medical History Past Medical History: Yes Cardiovascular: None Respiratory: None Endocrine/Autoimmune: None GI: GERD : None HEENT: None Psych: Depression Musculoskeletal: Fibromyalgia, Chronic back pain Derm: Eczema - Past Surgical History Past Surgical History: Yes General: Cholecystectomy Ortho: Carpal Tunnel surgery, Other HEENT: Tonsil/Adenoidectomy - Present Medications Home Medications: Ambulatory Orders Medication Instructions Recorded Confirmed FLUoxetine [PROzac] 80 mg PO DAILY 06/28/15 08/31/18 Cyclobenzaprine [Flexeril] 10 mg PO TID PRN #20 tablet 11/30/17 08/31/18 Ibuprofen [Motrin] 400 mg PO Q6H PRN #30 tablet 11/30/17 08/31/18 Lidocaine Patch 5% [Lidoderm Patch] 1 each TOP DAILY PRN #10 patch 11/30/17 08/31/18 Pantoprazole [Protonix] 20 mg DAILY 11/30/17 08/31/18 traMADol [Ultram] 50 - 100 mg PO Q6H PRN #20 tablet 04/28/18 08/31/18 Albuterol Sulf [Ventolin Hfa 1 - 2 puffs INH Q4HR PRN #1 inhaler 08/31/18 Inhaler] - Allergies Allergies/Adverse Reactions: Allergies Allergy/AdvReac Type Severity Reaction Status Date / Time hydrocodone bitartrate * AdvReac Unknown Headache Verified 02/18/19 08:51 [From Vicodin] - Social History Does the pt smoke?: No Smoking Status: Never smoker Does the pt drink ETOH?: No Does the pt have substance abuse?: No - Immunizations Immunizations are current?: Yes - POLST Patient has POLST: No PD ED PE NORMAL - Vitals Vital signs reviewed: Yes (hypertensive mild ) - General General: Alert and oriented X 3, No acute distress, Well developed/nourished - HEENT HEENT: Atraumatic, PERRL, EOMI - Neck Neck: Supple, no meningeal sign, No bony TTP - Respiratory Respiratory: No respiratory distress - Derm Derm: Normal color, Warm and dry, No rash - Extremities Extremities: No deformity, No edema, Other (There is tenderness over the olecrenon but with full ROM of the elbow to flex, extend and supinate/pronate. The wrist is without tenderness and has normal unrestricted ROM The 3rd adn 4th digits are bruised without deformity and with retained ROM restricted by pain. distal n/v is intact. 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, No motor deficit, No sensory deficit, Normal speech Eye Opening: Spontaneous Motor: Obeys Commands Verbal: Oriented GCS Score: 15 - Psych Psych: Normal mood Results - Vitals Vitals: Vital Signs - 24 hr 02/18/19 08:48 Temperature 35.6 C L Heart Rate 94 Respiratory 16 Rate Blood Pressure 131/87 H O2 Saturation 97 Oxygen O2 Source Room air - Rads (name of study) elbow Radiology: Prelim report reviewed (Impression: Normal elbow radiography.), EMP read indepedently, See rad report hand Radiology: Prelim report reviewed (Impression: Normal hand radiography), EMP read indepedently, See rad report PD MEDICAL DECISION MAKING - ED course Complexity details: reviewed results, re-evaluated patient, considered differential, d/w patient, d/w family ED course: 43-year-old female with a fall and contusion of her left elbow and jamming of her fingers and a great is placed into a posterior splint and sling and off work for 3 days. Departure - Departure Disposition: 01 Home, Self Care Clinical Impression: Left elbow contusion Qualifiers: Encounter type: initial encounter Qualified Code(s): S50.02XA - Contusion of left elbow, initial encounter Sprain of left middle finger Qualifiers: Encounter type: initial encounter Sprain of finger site: interphalangeal joint Qualified Code(s): S63.633A - Sprain of interphalangeal joint of left middle finger, initial encounter Instructions: ED Sprain Finger, ED Contusion Upper Ext Follow-Up: David Cantor ARNP [Primary Care Provider] - Forms: Activity restrictions
[2019-02-18 10:51] VITALS: BP 144/84
== END 2019-02-18 10:50 | disposition home or self-care (01) ==
LOC: ED 08:40
DX: S63.633A Sprain of interphalangeal joint of left middle finger, initial encounter (principal); S50.02XA Contusion of left elbow, initial encounter; S60.042A Contusion of left ring finger without damage to nail, initial encounter; S60.032A Contusion of left middle finger without damage to nail, initial encounter; W01.0XXA Fall on same level from slipping, tripping and stumbling without subsequent striking against object, initial encounter; Y93.01 Activity, walking, marching and hiking; Y92.89 Other specified places as the place of occurrence of the external cause; Y99.0 Civilian activity done for income or pay
CPT/HCPCS: 1040M; 73080; 73130; 99281; 99284

== ENCOUNTER 2019-06-08 07:15 | Emergency (ER) | payer OTHER ==
[2019-06-08 07:29] VITALS: BP 145/91
--- NOTE | 2019-06-08 07:31 | ED Physician Documentation ---
PD HPI HEENT - Stated complaint Stated Complaint: SORE THROAT - Chief complaint Chief Complaint: Heent - History obtained from History obtained from: Patient - History of Present Illness Timing - onset: How many days ago (3) Timing - duration: Days (3) Timing - details: Gradual onset, Still present Severity Comments: moderate Location: Sinuses, Nose, Throat Improves: Nothing Worsens: Swalllowing Associated symptoms: Congestion, Cough Similar symptoms before: Has not had sx before Recently seen: Not recently seen - Treatment prior to arrival Treatment prior to arrival: over the counter cough and cold syrups Review of Systems Ten Systems: 10 systems reviewed and negative Constitutional: reports: Myalgias. denies: Fever Eyes: reports: Reviewed and negative Ears: reports: Reviewed and negative Nose: reports: Congestion Throat: reports: Oral lesions / sores, Sore throat Cardiac: reports: Reviewed and negative Respiratory: reports: Cough. denies: Dyspnea, Wheezing GI: reports: Reviewed and negative. denies: Abdominal Pain, Nausea, Vomiting, Diarrhea Skin: reports: Reviewed and negative Musculoskeletal: reports: Reviewed and negative Neurologic: reports: Reviewed and negative Immunocompromised: reports: Reviewed and negative PD PAST MEDICAL HISTORY - Past Medical History Past Medical History: Yes Cardiovascular: None Respiratory: None Endocrine/Autoimmune: None GI: GERD : None HEENT: None Psych: Depression Musculoskeletal: Fibromyalgia, Chronic back pain Derm: Eczema - Past Surgical History Past Surgical History: Yes General: Cholecystectomy Ortho: Carpal Tunnel surgery, Other HEENT: Tonsil/Adenoidectomy - Present Medications Home Medications: Ambulatory Orders Medication Instructions Recorded Confirmed FLUoxetine [PROzac] 80 mg PO DAILY 06/28/15 08/31/18 Cyclobenzaprine [Flexeril] 10 mg PO TID PRN #20 tablet 11/30/17 08/31/18 Ibuprofen [Motrin] 400 mg PO Q6H PRN #30 tablet 11/30/17 08/31/18 Lidocaine Patch 5% [Lidoderm Patch] 1 each TOP DAILY PRN #10 patch 11/30/17 08/31/18 Pantoprazole [Protonix] 20 mg DAILY 11/30/17 08/31/18 traMADol [Ultram] 50 - 100 mg PO Q6H PRN #20 tablet 04/28/18 08/31/18 Albuterol Sulf [Ventolin Hfa 1 - 2 puffs INH Q4HR PRN #1 inhaler 08/31/18 Inhaler] - Allergies Allergies/Adverse Reactions: Allergies Allergy/AdvReac Type Severity Reaction Status Date / Time hydrocodone bitartrate * AdvReac Unknown Headache Verified 06/08/19 07:29 [From Vicodin] - Social History Does the pt smoke?: No Smoking Status: Never smoker Does the pt drink ETOH?: No Does the pt have substance abuse?: No - Immunizations Immunizations are current?: Yes - POLST Patient has POLST: No PD ED PE NORMAL - Vitals Vital signs reviewed: Yes - General General: Alert and oriented X 3, No acute distress, Well developed/nourished - HEENT HEENT: Atraumatic, PERRL, EOMI, Ears normal, Moist mucous membranes, Pharynx benign - Neck Neck: Supple, no meningeal sign - Cardiac Cardiac: RRR - Respiratory Respiratory: No respiratory distress - Abdomen Abdomen: Soft, Non distended - Female Female : Deferred - Rectal Rectal: Deferred - Derm Derm: Normal color, Warm and dry, No rash - Neuro Neuro: Alert and oriented X 3 Eye Opening: Spontaneous Motor: Obeys Commands Verbal: Oriented GCS Score: 15 - Psych Psych: Normal mood, Normal affect PD ED PE EXPANDED - HEENT HEENT: Atraumatic, PERRL, Ears normal, Nasal congestion, Pharyngeal erythema, Dentition normal, Other (apthous ulcers on the soft palate and uvula). 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 Well appearing, has + strep. Pt has had penicillin before with no hx of allergy. Thus will start her on IM penicillin. Given a dose of decadron in the ED. pt stable for discharge with continued supportive care. Departure - Departure Disposition: 01 Home, Self Care Clinical Impression: Strep pharyngitis Condition: Stable Instructions: Strep Throat Follow-Up: your, doctor [Other] - As Needed Forms: Activity restrictions Discharge Date/Time: 06/08/19 07:49
[2019-06-08] MEDS ORDERED: PENICILLIN G BENZATHINE 600,000 UNIT/ML SYRINGE IM STA (07:47)
[2019-06-08] MEDS ORDERED: DEXAMETHASONE 10 MG/ML VIAL PO STA (07:48)
[2019-06-08] MEDS ORDERED: CHERRY SYRUP 10 ML UDC PO ONE (07:48)
== END 2019-06-08 08:25 | disposition home or self-care (01) ==
LOC: ED 07:15
DX: J02.0 Streptococcal pharyngitis (principal); K12.0 Recurrent oral aphthae
CPT/HCPCS: 87430; 96372; 99283; 99284; A9270

== ENCOUNTER 2020-01-23 00:13 | Emergency (ER) | payer OTHER ==
[2020-01-23 00:31] VITALS: BP 149/96
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
== END 2020-01-23 03:09 | disposition home or self-care (01) ==
LOC: ED 00:13
DX: S39.012A Strain of muscle, fascia and tendon of lower back, initial encounter (principal); V48.0XXA Car driver injured in noncollision transport accident in nontraffic accident, initial encounter; Y92.410 Unspecified street and highway as the place of occurrence of the external cause
CPT/HCPCS: 99281; 99282

== ENCOUNTER 2020-01-24 09:29 | Emergency (ER) | payer OTHER ==
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
[2020-01-24 11:59] VITALS: BP 132/68
== END 2020-01-24 11:59 | disposition home or self-care (01) ==
LOC: ED 09:29
DX: H53.2 Diplopia (principal)
CPT/HCPCS: 70450; 99282; 99283

== ENCOUNTER 2020-03-04 15:21 | Outpatient (CLI) | payer OTHER ==
[2020-03-04 16:16] VITALS: BP 134/90
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
== END 2020-03-04 15:22 | disposition home or self-care (01) ==
LOC: SC 15:21
PROVIDERS: ATTEND Nurse Practitioner Family
DX: R06.83 Snoring (principal); G47.8 Other sleep disorders; R53.83 Other fatigue; G47.10 Hypersomnia, unspecified; E66.01 Morbid (severe) obesity due to excess calories; Z68.41 Body mass index [BMI] 40.0-44.9, adult; F32.9 Major depressive disorder, single episode, unspecified
CPT/HCPCS: 99203; 99212

== ENCOUNTER 2020-04-02 19:30 | Outpatient (CLI) | payer OTHER | END 2020-04-02 19:31 | disposition home or self-care (01) | LOC: SC 19:30 | PROVIDERS: ATTEND Nurse Practitioner Family | DX: G47.33 Obstructive sleep apnea (adult) (pediatric) (principal); G47.61 Periodic limb movement disorder; E66.9 Obesity, unspecified; Z68.41 Body mass index [BMI] 40.0-44.9, adult | CPT/HCPCS: 95810 ==

== ENCOUNTER 2020-04-12 14:58 | Outpatient (CLI) | payer OTHER ==
--- NOTE | 2020-04-12 15:31 | SLEEP CARE CONSULTATION ---
Information from patient questionnaire entered by Sina Anand. I have reviewed and concur with the information entered by Sina Anand. This document represents the service I personally performed and the decisions made by me, Alexandra Mojica ARNP. History of Present Illness Service Date and Time: 04/12/2020 1458 Initial [place] Sleepiness Scale score: 17 (in 2019 (4 in 2011) Current [place] Sleepiness Scale score: 15 Additional HPI information: CHRISTINE WADE returns for follow up and results of the recently performed polysomnography. I explained the pathophysiology behind obstructive sleep apnea. We then spent quite a bit of time discussing different treatment options. For mild obstructive sleep apnea, surgery and oral appliance are alternatives to nasal CPAP therapy but in moderate or severe cases, nasal CPAP is the most effective and reliable treatment. After some discussion, the patient opted to go with the nasal CPAP therapy. Nasal autoCPAP set at 4-15 cmH20 will be ordered with rationale explained. A manual titration study will be ordered if unable to find optimal pressure with office adjustments. I explained how CPAP machine works with sample devices [employer] Dreamstation and [employer] [id number] and what to expect when using the machine. Using CPAP every night in order to get used to it was emphasized. Patient advised to put CPAP mask on before getting into bed so as not to fall asleep without CPAP. To assist acclimation to CPAP use, it could also be used for a short time during day while reading or watching TV. The patient was instructed to call the CPAP supplier to discuss any mechanical problem that may occur. If the mask given is uncomfortable or is difficult to keep on through the night even with adjustment, contact the CPAP supplier as many will replace with another mask style if notified before 30 days. If snoring or perceives is not getting enough air or too much air from the machine, notify this office. AASM patient education PAP tips reviewed and given to patient. Patient counseled not drink alcohol less than 4 hours before bedtime as it can increase snoring and apnea. Patient was cautioned about risks of drowsy driving until sleepiness symptoms resolve. Sleep Study - Results Type of Sleep Study: Polysomnography Prior sleep studies: Yes Year and Where: 2011 [facility] Polysomnography/Home Sleep Study results: IMPRESSION: The quality of the study is good. The patient had normal sleep efficiency. The sleep architecture was abnormal for sleep fragmentation and reduced amount of time spent in REM and slow wave sleep (N3). Respiratory monitoring showed severe obstructive sleep apnea-hypopnea (AHI = 45.9) associated with frequent arousals, oxyhemoglobin desaturation and moderate hypoxia (rocio oxygen saturation of 70%). Baseline oxygen saturation was normal. The respiratory events occurred more frequently during supine sleep (supine AHI = 65.9; non-supine = 28.71). Snore was moderate to loud in intensity. There was moderate periodic leg movement of sleep not contributing to the sleep fragmentation. Cardiac rhythm was normal sinus rhythm with occasional premature ventricular contractions. No abnormal behavior (parasomnia) observed during the night. Allergies and Home Medications Drug allergies reviewed: Yes (hydrocodone) Home medication list reviewed: Yes (no changes) Review of Systems Review of systems same as previous: Yes (no changes) Physical Exam Heart Rate: 103 O2 Saturation: 97 Height: 5 ft 7 in Weight: 274 lb Body Mass Index: 42.9 BMI Classification: Morbidly Obese Impression and Plan 1. Obstructive Sleep Apnea-Hypopnea Syndrome, severe, with lowest oxygen saturation of 70%. Obviously this is the cause of the patients symptoms of unrefreshed sleep, and excessive daytime sleepiness. Positive pressure therapy could benefit her anxiety, depression and GERD. As mentioned above, the patient will be started on nasal autoCPAP therapy with pressure set at 4-15 cmH2O. A manual titration study will be completed if unable to find optimal treatment pressure with office adjustments. Compliance guidelines also reviewed. A copy of compliance guidelines will be given for reference at check out. Because the apnea is more severe supine, I instructed to avoid sleeping supine using pillow positioning until able to start CPAP use. 2. Periodic limb movement, moderate, that did not fragment patients sleep. Periodic limb movement of sleep (PLMS) is characterized by episodes of repetitive limb movements that occur during sleep and usually involve the lower limbs. The etiology is unknown but can be associated with restless leg syndrome (RLS), neuropathy, spinal cord diseases, kidney disease, rheumatological disorders, narcolepsy, obstructive sleep apnea, and REM sleep behavior disorder. Other factors that can increase PLMS and/or RLS are heredity and iron deficiency as reflected by a low serum ferritin level below 50 to 75mcg / L. Several medications can precipitate or aggravate PLMS such as selective serotonin re- uptake inhibitor antidepressants, tricyclic antidepressants, lithium, and dopamine receptor antagonists with the exception of bupropion. Caffeine can also aggravate PLMS and should be avoided. Sleep hygiene methods can also improve sleep as well as lifestyle changes such as regular exercise. Patient was advised that no treatment is needed at this time. If symptoms increase, then further evaluation is indicated. * Nasal auto CPAP therapy, pressure at 4-15 cm H2O. * Attempt to lose weight. * Avoid alcohol consumption near bedtime. * Avoid supine sleep until using CPAP. * The patient is again cautioned about driving until sleepiness completely resolves. * Return one month after CPAP obtained. I will assess response to therapy and compliance at that time. Counseling Topics: Sleeping position, Weight loss health impact Visit Type: In Office Time Spent with Patient (minutes): 23 Provider Statement: I spent 100% of the Face to Face Visit with the patient with greater than 50% spent counseling the patient and coordination of care.
== END 2020-04-12 14:59 | disposition home or self-care (01) ==
LOC: SC 14:58
PROVIDERS: ATTEND Nurse Practitioner Family
DX: G47.33 Obstructive sleep apnea (adult) (pediatric) (principal); G47.61 Periodic limb movement disorder; E66.01 Morbid (severe) obesity due to excess calories; Z68.42 Body mass index [BMI] 45.0-49.9, adult
CPT/HCPCS: 99212; 99213

== ENCOUNTER 2020-05-21 08:34 | Emergency (ER) | payer OTHER ==
--- NOTE | 2020-05-21 08:50 | ED Physician Documentation ---
PD HPI ABD PAIN - Stated complaint Stated Complaint: RT SIDE PX - Chief complaint Chief Complaint: General - History obtained from History obtained from: Patient - History of Present Illness Timing - onset: Last night, Yesterday Timing - details: Gradual onset, Still present, Waxing and waning Quality: Cramping, Aching, Pain Location: RLQ Radiation: Right flank (lower right back, not really as high as kidney) Improved by: Laying still. No: Eating Worsened by: Moving. No: Eating, Breathing Associated symptoms: Loss of appetite. No: Fever, Nausea, Vomiting, Diarrhea, Constipation, Dysuria Similar symptoms before: Has not had sx before Recently seen: Not recently seen Review of Systems Constitutional: denies: Fever, Chills, Myalgias Nose: denies: Rhinorrhea / runny nose, Congestion Throat: denies: Sore throat Respiratory: denies: Cough GI: reports: Abdominal Pain, Nausea. denies: Vomiting, Constipation, Diarrhea : reports: Discharge (mild), LMP (1 week ago, normal for her.), Other (has had Mernia IUD in place for couple years without problems.). 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 : None HEENT: None Psych: Depression Musculoskeletal: Fibromyalgia, Chronic back pain Derm: Eczema - Past Surgical History Past Surgical History: Yes General: Cholecystectomy Ortho: Carpal Tunnel surgery, Other HEENT: Tonsil/Adenoidectomy - Present Medications Home Medications: Ambulatory Orders Medication Instructions Recorded Confirmed FLUoxetine [PROzac] 80 mg PO DAILY 06/28/15 08/31/18 Cyclobenzaprine [Flexeril] 10 mg PO TID PRN #20 tablet 11/30/17 08/31/18 Ibuprofen [Motrin] 400 mg PO Q6H PRN #30 tablet 11/30/17 08/31/18 Lidocaine Patch 5% [Lidoderm Patch] 1 each TOP DAILY PRN #10 patch 11/30/17 08/31/18 Pantoprazole [Protonix] 20 mg DAILY 11/30/17 08/31/18 traMADol [Ultram] 50 - 100 mg PO Q6H PRN #20 tablet 04/28/18 08/31/18 Albuterol Sulf [Ventolin Hfa 1 - 2 puffs INH Q4HR PRN #1 inhaler 08/31/18 Inhaler] Naproxen [EC-Naproxen] 500 mg PO BID #20 tablet. 05/21/20 Oxycodone HCl/Acetaminophen 1 each PO Q6H PRN #20 tablet 05/21/20 [Percocet 5-325 mg Tablet] - Allergies Allergies/Adverse Reactions: Allergies Allergy/AdvReac Type Severity Reaction Status Date / Time hydrocodone bitartrate * AdvReac Unknown Headache Verified 05/21/20 08:41 [From Vicodin] - Social History Does the pt smoke?: No Smoking Status: Never smoker Does the pt drink ETOH?: No Does the pt have substance abuse?: No - Immunizations Immunizations are current?: Yes - POLST Patient has POLST: No PD ED PE NORMAL - Vitals Vital signs reviewed: Yes - General General: Alert and oriented X 3, No acute distress, Well developed/nourished - Neck Neck: Supple, no meningeal sign, No adenopathy - Cardiac Cardiac: RRR, No murmur - Respiratory Respiratory: Clear bilaterally - Abdomen Abdomen: Normal bowel sounds, Soft, Non distended, No organomegaly, Other (tender without percussion nor rebound tenderness lower right abd. No CVA tenderness nor back tenderness. ) - Female Female : Deferred - Rectal Rectal: Deferred - Back Back: No CVA TTP - Derm Derm: Normal color, Warm and dry, No rash - Extremities Extremities: No deformity, No tenderness to palpate - Neuro Neuro: Alert and oriented X 3, No motor deficit, Normal speech Results - Vitals Vitals: Vital Signs - 24 hr 05/21/20 05/21/20 05/21/20 08:38 09:38 11:00 Temperature 36.9 C Heart Rate 96 84 87 Respiratory 18 17 17 Rate Blood Pressure 146/81 H 128/88 H 134/72 H O2 Saturation 98 98 95 05/21/20 05/21/20 11:36 12:36 Temperature Heart Rate 84 86 Respiratory 17 16 Rate Blood Pressure 129/84 H 128/99 H O2 Saturation 96 96 Oxygen O2 Source Room air - Labs Labs: Laboratory Tests 05/21/20 05/21/20 05/21/20 09:17 09:30 09:30 WBC 7.2 RBC 4.56 Hgb 13.7 Hct 40.7 MCV 89.3 MCH 30.0 MCHC 33.7 RDW 12.3 Plt Count 380 MPV 8.8 Neut # (Auto) 3.8 Lymph # (Auto) 2.5 Pershing # (Auto) 0.5 Eos # (Auto) 0.2 Baso # (Auto) 0.1 Absolute Nucleated RBC 0.00 Nucleated RBC % 0.0 Sodium 139 Potassium 4.3 Chloride 98 L Carbon Dioxide 27 Anion Gap 14.0 H BUN 17 Creatinine 0.8 Estimated GFR (MDRD) 77 L Glucose 100 Calcium 9.7 Total Bilirubin 0.9 AST 23 ALT 32 Alkaline Phosphatase 53 Total Protein 7.7 Albumin 4.1 Globulin 3.6 Albumin/Globulin Ratio 1.1 Lipase 33 Urine Color YELLOW Urine Clarity HAZY Urine pH 6.0 Ur Specific [place] 1.020 Urine Protein NEGATIVE Urine Glucose (UA) NEGATIVE Urine Ketones NEGATIVE Urine Occult Blood SMALL H Urine Nitrite NEGATIVE Urine Bilirubin NEGATIVE Urine Urobilinogen 0.2 (NORMAL) Ur Leukocyte Esterase NEGATIVE Urine RBC 6-10 H Urine WBC 0-3 Ur Squamous Epith Cells MANY Squamous H Urine Bacteria Rare Ur Microscopic Review INDICATED Urine Culture Comments NOT INDICATED - Rads (name of study) abd/pelvic CT Radiology: Prelim report reviewed (No kidney stones nor hydronephrosis. Normal appendix. Her IUD is migrated with 1 arm into the myometrium and at the serosal surface), See rad report PD MEDICAL DECISION MAKING - ED course Complexity details: reviewed results (CT scan showed normal appendix and no kidney stones and no signs of bowel problems. Her IUD had migrated and was 1 arm sticking into the myometrium and just about to the outer serosal surface. No free fluid in the area.), considered differential, d/w patient, d/w qa consultant (I talked with Dr. Mancia who is on for gynecology. She states she would follow-up with the patient in the next few days in the office for likely hysteroscopic removal of the IUD as it would likely hurt and bleed with removal in this instance.) Departure - Departure Disposition: 01 Home, Self Care Clinical Impression: Lower abdominal pain IUD migration Qualifiers: Encounter type: initial encounter Qualified Code(s): T83.32XA - Displacement of intrauterine contraceptive device, initial encounter Condition: Stable Record reviewed to determine appropriate education?: Yes Instructions: ED Abdominal Pain Unkn Cause Follow-Up: DEDE CHRISTINE MD [Primary Care Provider] - Mariela Mancia MD [Provider Admit Priv/Credential] - Prescriptions: Naproxen [EC-Naproxen] 500 mg PO BID #20 tablet.dr [place] HCl/Acetaminophen [Percocet 5-325 mg Tablet] 1 each PO Q6H PRN #20 tablet PRN Reason: pain Comments: Your IUD has migrated to where the arm is in the muscle in close to coming out the surface (outer surface) of the uterus. This is likely what is causing your pain as no other obvious findings are found on scan and labs. Follow-up with Dr. Mancia, call Saturday for an appointment. She should get you in within a few days and will discuss IUD removal in the options for that. Use an anti-inflammatory naproxen 2-3 times daily and add Tylenol or oxycodone as needed for pain in the meantime. Stay well-hydrated. Recheck if worsening pain, fevers, vomiting or other concerns. Discharge Date/Time: 05/21/20 13:00
[2020-05-21] MEDS ORDERED: KETOROLAC 15 MG/ML VIAL IVP STA (09:09)
[2020-05-21] MEDS ORDERED: SODIUM CHLORIDE 0.9% 1,000 ML IV STA (09:09)
[2020-05-21] MEDS ORDERED: HYDROmorphone 1 MG/ML CARPUJECT IVP STA (09:09)
[2020-05-21] MEDS ORDERED: ONDANSETRON 4 MG/2 ML VIAL IVP STA (09:10)
[2020-05-21] MEDS ORDERED: IOVERSOL 320 100 ML VIAL IVP ONE ×2 (09:23→11:21)
[2020-05-21 09:32] LABS: BILIRUBIN,URINE NEGATIVE (NEGATIVE); GLUCOSE, URINE (UA) NEGATIVE (NEGATIVE); KETONES,URINE (UA) NEGATIVE (NEGATIVE); LEUKOCYTE ESTERASE, URINE NEGATIVE (NEGATIVE); NITRITE,URINE NEGATIVE (NEGATIVE); OCCULT BLOOD,URINE SMALL (NEGATIVE); PROTEIN,URINE NEGATIVE (NEGATIVE); UROBILINOGEN,URINE 0.2 (NORMAL) E.U./dL (NORMAL)
[2020-05-21 09:33] LABS: CLARITY,URINE HAZY (CLEAR)
[2020-05-21 09:36] LABS: BASOPHILS # (AUTO) 0.1 10^3/uL (0.0-0.1); BASOPHILS % (AUTO) 0.7 %; EOSINOPHILS # (AUTO) 0.2 10^3/uL (0.0-0.7); EOSINOPHILS % (AUTO) 3.3 %; HGB - HEMOGLOBIN 13.7 g/dL (12.0-16.0); LYMPHOCYTES # (AUTO) 2.5 10^3/uL (1.5-3.5); LYMPHOCYTES % (AUTO) 34.6 %; MEAN CORPUSCULAR HGB CONC 33.7 g/dL (32.0-36.0); MEAN CORPUSCULAR VOLUME 89.3 fL (81.0-99.0); MEAN PLATELET VOLUME 8.8 fL (7.9-10.8); MONOCYTES # (AUTO) 0.5 10^3/uL (0.0-1.0); MONOCYTES % (AUTO) 7.5 %; NEUTROPHILS # (AUTO) 3.8 10^3/uL (1.5-6.6); NEUTROPHILS % (AUTO) 52.6 %; PLT - PLATELET COUNT 380 10^3/uL (130-450); RED BLOOD COUNT 4.56 10^6/uL (4.20-5.40); RED CELL DISTRIBUTION WIDTH 12.3 % (12.0-15.0); WHITE BLOOD COUNT 7.2 x10^3/uL (4.8-10.8)
[2020-05-21] MEDS ORDERED: KETOROLAC 30 MG/ML VIAL IVP STA (09:36)
[2020-05-21 09:37] LABS: BACTERIA,URINE Rare /HPF (None Seen); SQUAMOUS EPITHELIAL CELL,UR MANY Squamous (<= Few)
[2020-05-21 09:49] LABS: ALBUMIN 4.1 g/dL (3.2-5.5); ALBUMIN/GLOBULIN RATIO 1.1 (1.0-2.2); BILIRUBIN,TOTAL 0.9 mg/dL (0.2-1.0); CALCIUM 9.7 mg/dL (8.5-10.3); CREATININE 0.8 mg/dL (0.4-1.0); TOTAL PROTEIN 7.7 g/dL (6.7-8.2)
--- NOTE | 2020-05-21 11:12 | CT Report ---
PROCEDURE: Abdomen/Pelvis W INDICATIONS: RLQ Abdominal pain, appendicitis suspected CONTRAST: IV CONTRAST: Optiray 320 ml: 100 PO CONTRAST: *NO PO CONTRAST TECHNIQUE: After the administration of nonionic IV contrast, 5 mm thick sections acquired from the diaphragms to the symphysis. 5 mm thick coronal and sagittal reformats were acquired. For radiation dose reducti on, the following was used: automated exposure control, adjustment of mA and/or kV according to trinh ent size. COMPARISON: 04/28/2018 FINDINGS: Image quality: Excellent. ABDOMEN: Lung bases: Lung bases are clear. Heart size is normal. Solid organs: Liver and spleen are normal in size and enhancement. An accessory splenule is incide ntally noted along the hilum of the primary spleen. Gallbladder has been removed Biliary system is non dilated. Pancreas enhances normally. No adrenal nodules. Kidneys demonstrate normal size and enhancement, without hydronephrosis. Peritoneum and bowel: In this patient with this given history, scrutiny is given to the appendix. A normal appendix is seen, as depicted laterally on series 3 images 59 through 62. No focal right lower quadrant inflammatory changes are seen. Bowel loops demonstrate normal wall thickness and caliber. No free fluid or air. Nodes and vessels: No retroperitoneal or mesenteric adenopathy by size criteria. Aorta and inferior vena cava are normal in size. Miscellaneous: No ventral hernias. PELVIS: Genitourinary: Bladder wall thickness is normal. There is an IUD seen. The IUD is inferiorly locate d, with a portion of the transverse bar poking through the myometrium on the right side. This can be seen on series 3 image 77 and on series 7 image 41. And on series 6 images 44 through 46 No associate d inflammatory changes are seen. Miscellaneous: No inguinal hernias or adenopathy. Bones: No suspicious bony lesions. No vertebral body compression fractures. Focal L5-S1 degenerativ e change is seen. Milder degenerative changes are seen elsewhere. IMPRESSION: Normal appendix. No focal right lower quadrant inflammatory changes are seen. Abnormally placed IUD, which is inferiorly located, with a portion of the transverse bar poking throu gh the myometrium on the right side. This may be the cause of the patient's right lower quadrant pain . Please correlate with patient history and physical examination findings. (In 2018, the IUD can be s een in its normal, expected location.) Incidental note is made of: Cholecystectomy clips Accessory splenule Focal L5-S1 degenerative change Reviewed by: Harshil Louis MD on 05/21/2020 10:10 AM [place] Approved by: Harshil Louis MD on 05/21/2020 10:10 AM [facility] Station ID: [id number]
[2020-05-21 12:41] VITALS: BP 128/99
== END 2020-05-21 13:00 | disposition home or self-care (01) ==
LOC: ED 08:34
DX: T83.32XA Displacement of intrauterine contraceptive device, initial encounter (principal)
CPT/HCPCS: 36415; 74177; 80053; 81001; 83690; 85025; 96374; 96375; 99284; J1170; Q9967; 81003; 87086

== ENCOUNTER 2020-05-30 15:13 | Emergency (ER) | payer OTHER ==
--- NOTE | 2020-05-30 15:41 | ED Physician Documentation ---
PD HPI HEENT - Stated complaint Stated Complaint: PX IN RT FACE/EAR - Chief complaint Chief Complaint: Heent - History obtained from History obtained from: Patient - History of Present Illness Timing - onset: Yesterday Timing - duration: Days (2) Timing - details: Gradual onset (onset of some pain right parietal area yesterday and worse this morning, noting pain with just combing her hair. Located right forehead/frontal scalp over to right preauricular area. No rash nor sores.), Still present Location: Right ear (preauricular and parietal scalp area. Only on the right.) Improves: No: Medication (ibuprofen without improvement) Worsens: Position, Temperatures, Other (touching the area.) Associated symptoms: No: Fever, Congestion, Facial swelling, Cough Similar symptoms before: Has not had sx before Review of Systems Constitutional: denies: Fever, Chills Eyes: denies: Loss of vision, Photophobia Ears: reports: Ear pain Nose: denies: Rhinorrhea / runny nose, Congestion Throat: denies: Sore throat Respiratory: denies: Cough PD PAST MEDICAL HISTORY - Past Medical History Cardiovascular: None Respiratory: None Neuro: None Endocrine/Autoimmune: None GI: GERD MALTSTER: None : None HEENT: None Psych: Depression Musculoskeletal: Fibromyalgia, Chronic back pain Derm: Eczema - Past Surgical History Past Surgical History: Yes General: Cholecystectomy Ortho: Carpal Tunnel surgery, Other HEENT: Tonsil/Adenoidectomy - Present Medications Home Medications: Ambulatory Orders Medication Instructions Recorded Confirmed FLUoxetine [PROzac] 80 mg PO DAILY 06/28/15 08/31/18 Cyclobenzaprine [Flexeril] 10 mg PO TID PRN #20 tablet 11/30/17 08/31/18 Ibuprofen [Motrin] 400 mg PO Q6H PRN #30 tablet 11/30/17 08/31/18 Lidocaine Patch 5% [Lidoderm Patch] 1 each TOP DAILY PRN #10 patch 11/30/17 08/31/18 Pantoprazole [Protonix] 20 mg DAILY 11/30/17 08/31/18 traMADol [Ultram] 50 - 100 mg PO Q6H PRN #20 tablet 04/28/18 08/31/18 Albuterol Sulf [Ventolin Hfa 1 - 2 puffs INH Q4HR PRN #1 inhaler 08/31/18 Inhaler] Naproxen [EC-Naproxen] 500 mg PO BID #20 tablet. 05/21/20 Oxycodone HCl/Acetaminophen 1 each PO Q6H PRN #20 tablet 05/21/20 [Percocet 5-325 mg Tablet] Oxycodone HCl/Acetaminophen 1 each PO Q6H PRN #18 tablet 05/30/20 [Percocet 5-325 mg Tablet] Valacyclovir HCl [Valtrex] 1,000 mg PO TID #15 tablet 05/30/20 dexAMETHasone [Decadron] 4 mg PO DAILY #5 tablet 05/30/20 - Allergies Allergies/Adverse Reactions: Allergies Allergy/AdvReac Type Severity Reaction Status Date / Time hydrocodone bitartrate * AdvReac Unknown Headache Verified 05/30/20 15:27 [From Vicodin] - Social History Does the pt smoke?: No Smoking Status: Never smoker Does the pt drink ETOH?: No Does the pt have substance abuse?: No - Immunizations Immunizations are current?: Yes - POLST Patient has POLST: No PD ED PE NORMAL - Vitals Vital signs reviewed: Yes - General General: Alert and oriented X 3, No acute distress, Well developed/nourished - HEENT HEENT: Ears normal, Pharynx benign, Other (right scalp and upper forehead with marked sensitivity to light touch. Does not cross midline. Has distinct area that is tender and then normal sensation adjacent to it. ) - Neck Neck: Supple, no meningeal sign, No adenopathy - Cardiac Cardiac: RRR, No murmur - Respiratory Respiratory: Clear bilaterally - Derm Derm: Normal color, Warm and dry, No rash - Neuro Neuro: Alert and oriented X 3, No motor deficit, Normal speech Results - Vitals Vitals: Vital Signs - 24 hr 05/30/20 05/30/20 15:24 16:13 Temperature 36.7 C 37.1 C Heart Rate 94 93 Respiratory 14 18 Rate Blood Pressure 134/87 H 136/90 H O2 Saturation 98 97 Oxygen O2 Source Room air PD MEDICAL DECISION MAKING - ED course Complexity details: considered differential (the demarcated pain and tenderness, not crossing midline, without obvious other cause would be very suggestive of early shingles. ), d/w patient Departure - Departure Disposition: 01 Home, Self Care Clinical Impression: Right sided facial pain Shingles Qualifiers: Herpes zoster complications: without complications Qualified Code(s): B02.9 - Zoster without complications Condition: Stable Record reviewed to determine appropriate education?: Yes Instructions: ED Shingles Prescriptions: dexAMETHasone [Decadron] 4 mg PO DAILY #5 tablet Oxycodone HCl/Acetaminophen [Percocet 5-325 mg Tablet] 1 each PO Q6H PRN #18 tablet PRN Reason: pain Valacyclovir HCl [Valtrex] 1,000 mg PO TID #15 tablet Comments: There are not too many conditions that will cause the pain and skin sensitivity in a pattern that you have. I think this is early shingles. We will treated with an antiviral as well as anti-inflammatory and add pain medicine if needed. Valacyclovir 3 times a day as directed. Decadron steroid daily for 5 days as well. Add Tylenol or ibuprofen if needed for pains and oxycodone if needed for worse pain. Be sure to take the medication with food so they do not bother your stomach. Continue your other usual medications. I would anticipate some worsening over the next couple of days but hopefully not much. You may develop some rash in the area 2 or 3 days from now. If so clean it with soap and water and just watch for secondary infection like purulence or spreading redness beyond the area involved. Follow-up with your primary care if worsened and further medication needed. Discharge Date/Time: 05/30/20 16:20
[2020-05-30] MEDS ORDERED: ACYCLOVIR 200 MG CAPSULE PO STA (16:03)
[2020-05-30] MEDS ORDERED: DEXAMETHASONE 10 MG/ML VIAL PO STA (16:03)
[2020-05-30] MEDS ORDERED: CHERRY SYRUP 10 ML UDC PO ONE (16:03)
[2020-05-30] MEDS ORDERED: oxyCODONE 5 MG TABLET PO STA (16:04)
[2020-05-30 16:13] VITALS: BP 136/90
== END 2020-05-30 16:20 | disposition home or self-care (01) ==
LOC: ED 15:13
DX: B02.9 Zoster without complications (principal)
CPT/HCPCS: 99283; 99284; A9270

== ENCOUNTER 2020-06-15 13:25 | Outpatient (CLI) | payer OTHER ==
--- NOTE | 2020-06-15 13:55 | SLEEP CARE CONSULTATION ---
Information from patient questionnaire entered by Sina Anand. I have reviewed and concur with the information entered by Sina Anand. This document represents the service I personally performed and the decisions made by me, Alexandra Mojica ARNP. History of Present Illness Service Date and Time: 06/15/2020 1325 Previous diagnosis: Severe, Obstructive Sleep Apnea-Hypopnea Syndrome AHI: 45.9 (in 2019) Reason for follow up: first compliance (04/20/20) Equipment type: CPAP Equipment obtained from: Other ([facility]; got initial supplies) Mask style: Nasal Mask brand: Resmed Backup mask available: Yes (other mask) Last cushion change: 1.5 weeks ago Prior sleep studies: Yes Year and Where: 2011 and 2019 [facility] Type of Sleep Study: Polysomnography HPI additional information: CHRISTINE WADE was diagnosed to have severe, AHI 45.9, obstructive sleep apnea-hypopnea syndrome and returned today for CPAP therapy first compliance follow-up. Sleep Study - Results Type of Sleep Study: Polysomnography Prior sleep studies: Yes Year and Where: 2011 [facility] CPAP Compliance Data - Data Reviewed with Patient Average duration of nightly device use: 4 h 48 min Compliance rate %: 53 Current pressure setting (cmH2O): 4-15 Average residual AHI: 1.8 Central apnea: 0.0 Obstructive apnea: 0.9 Average large leak: 25.9 L/min Subjective Missed days of use due to: reports: other (feel asleep without mask on) Patient concerns: reports: mask leak noise (from sleeping on side). denies: aerophagia, mask discomfort, air blowing in eyes, condensation in mask/hose, nasal congestion, dry mouth, nose, throat, epistaxis, other Observed to snore while using device: No Current pressure setting perceived as: comfortable On therapy, patient: reports: sleeping better, awakening more refreshed, being more awake and alert during the day, more rested overall. denies: drowsiness while driving Initial [place] Sleepiness Scale score: 17 (in 2019 (4 in 2011) Current [place] Sleepiness Scale score: 10 Allergies and Home Medications Drug allergies reviewed: Yes (hydrocodone) Home medication list reviewed: Yes (Adderall, blood pressure med (chlorthalidone?)) Review of Systems Review of systems same as previous: No (dx ADD) Physical Exam Heart Rate: 112 (on Adderall) O2 Saturation: 96 Height: 5 ft 9 in Weight: 271 lb Body Mass Index: 40.0 BMI Classification: Morbidly Obese Impression and Plan 1. Obstructive Sleep Apnea-Hypopnea Syndrome, severe, with fair treatment compliance and good apnea control. On CPAP therapy, the patient has better sleep quality and is more rested overall. Patient has fair compliance at 53% and has been falling asleep before putting on the mask. I advised her to not lay down without the mask on and also set an alarm to wake her up for going to bed. This will remind her/waker her up to put on her mask. She voiced understanding. Patient has been losing weight since she started taking the Adderall. She has had some mask leak noises, mostly when going to lay on her side. I advised her to try a CPAP pillow with a cutout at the end of the pillow that will reduce dislodging of the mask and causing leaks. I will adjust her pressure to reflect the pressures she is using according to her download. She is to follow up for pressure change and to recheck compliance in 1-2 months. Patient's apnea sev erity and rationale for treatment to reduce apnea, improve sleep quality and reduce cardiovascular and cerebrovascular events was reviewed. I also reviewed the benefit of consistent device use of CPAP for gastric reflux and depression/anxiety. * Change autoCPAP pressure to 8-12 cmH2O * Notify me if snoring with mask or feeling that the pressure is too much or too little * Attempt to lose weight * Call this office if any problems using CPAP * Return for follow up in 1-2 months, or sooner if concerns arise Counseling Topics: Spare mask, Weight loss health impact Visit Type: In Office Time Spent with Patient (minutes): 21 Provider Statement: I spent 100% of the Face to Face Visit with the patient with greater than 50% spent counseling the patient and coordination of care.
== END 2020-06-15 13:26 | disposition home or self-care (01) ==
LOC: SC 13:25
PROVIDERS: ATTEND Nurse Practitioner Family
DX: G47.33 Obstructive sleep apnea (adult) (pediatric) (principal); E66.01 Morbid (severe) obesity due to excess calories; Z68.41 Body mass index [BMI] 40.0-44.9, adult
CPT/HCPCS: 99212; 99213

== ENCOUNTER 2021-02-13 13:48 | Outpatient (CLI) | payer OTHER ==
--- NOTE | 2021-02-13 16:42 | MRI Report ---
PROCEDURE: Lumbar Spine W/O INDICATIONS: LOW BACK PAIN TECHNIQUE: Noncontrast sagittal T1 spin echo and T2 fast echo, sagittal STIR, axial T1 and T2 fast spin echo thr ough the lumbar spine. In cases with scoliosis, additional coronal T2 fast spin echo may be performe d. COMPARISON: Correlation is made with prior abdomen and pelvis CT, 05/21/2020 FINDINGS: Image quality: Motion artifact is noted. Alignment and Curvature: There is normal bony alignment. Bone Marrow: Marrow is of normal overall signal. No acute vertebral body compression fractures. Spinal Cord: Conus medullaris terminates at the L1 level. Visualized cord demonstrates normal signa l and size. Paraspinous Soft Tissues: No paravertebral masses. T12-L1: Normal in appearance. L1-L2: No significant abnormality is seen. L2-L3: Normal in appearance. L3-L4: The disc height and disc signal are relatively well-preserved. Mild disc bulge is seen. Moderate facet hypertrophy is seen. Moderate bilateral neural foraminal narrowing is seen. No sign ificant central canal narrowing is seen. L4-L5: The disc height is well-preserved. There is loss of disc signal seen. Mild to moderate disc bulge is seen. Moderate to prominent facet hypertrophy can be seen. There is moderate to severe bilat eral neuroforaminal narrowing seen, right worse than left. Compression is seen upon the exiting nerve roots. Mild to moderate central canal narrowing is seen. Mild to moderate loss of disc height and d isc signal can be seen. L5-S1: Mild to moderate disc bulge is seen. Moderate facet hypertrophy is seen. Mild to moderate bilateral neuroforaminal narrowing can be seen. No significant central canal narrowing is seen. IMPRESSION: Lumbar spine degenerative changes are seen, which are worst inferiorly. Reviewed by: Harshil Louis MD on 02/13/2021 3:40 PM SOLOMON Approved by: Harshil Louis MD on 02/13/2021 3:40 PM AKALFONZO Station ID: [id number]
== END 2021-02-13 13:49 | disposition home or self-care (01) ==
LOC: DI 13:48
PROVIDERS: ATTEND Family Medicine
DX: M47.816 Spondylosis without myelopathy or radiculopathy, lumbar region (principal); M48.061 Spinal stenosis, lumbar region without neurogenic claudication; M51.36 Other intervertebral disc degeneration, lumbar region; M47.817 Spondylosis without myelopathy or radiculopathy, lumbosacral region; M48.07 Spinal stenosis, lumbosacral region

== ENCOUNTER 2021-02-13 15:00 | Outpatient (CLI) | payer OTHER ==
--- NOTE | 2021-02-13 16:49 | MRI Report ---
PROCEDURE: Ankle LT W/O INDICATIONS: PERONEAL TENDONITIS TECHNIQUE: Noncontrast Magnetic Resonance Imaging (MRI) of the ankle/hindfoot was performed utilizing the follow ing sequences: sagittal T1 spin echo, sagittal STIR or T2 weighted, axial PD fast spin echo, axial T2 fast spin echo with fat saturation, coronal T2 spin echo with fat saturation, and PD fast spin echo with fat saturation. COMPARISON: None. FINDINGS: Bones: No acute fracture. No suspicious osseous lesion. Scattered subchondral sclerosis and spurring . Joint effusions: Subtalar joint effusion. Talar dome: No osteochondral lesion. Coalitions: No hindfoot coalition identified. There is diffuse hindfoot and midfoot degenerative spurring and subchondral sclerosis Medial structures: Deltoid ligament: Intact although amorphous signal changes raise possibility of chronic sprain. Spring ligament: Intact. Posterior tibialis: Intact. Mild tenosynovitis. Flexor digitorum longus: Intact. Flexor hallucis longus: Intact. Posterior tibial neurovascular bundle: Normal appearance. Lateral structures: Anterior talofibular ligament: Chronic appearing sprain and thickened appearance Calcaneofibular ligament: Not well visualized presumably chronic rupture Posterior talofibular ligament: Intact. Anterior tibiofibular ligament: Intact. Posterior tibiofibular ligament: Intact. Peroneus longus: Intact. No tenosynovitis. Peroneus brevis: Intact. No tenosynovitis. Sinus tarsi: Normal appearance. Anterior structures: Dorsal talonavicular ligament: Intact. Tibialis anterior: Intact. Extensor hallucis longus: Intact. Extensor digitorum longus: Intact. Posterior and plantar structures: Achilles tendon: Intact. Plantar fascia: Intact. Muscles: No atrophy to suggest Machuca's neuropathy. IMPRESSION: No peroneal tenosynovitis identified. Severe extensor digitorum longus tenosynovitis Chronic appearing sprain of the deltoid ligament, anterior talofibular ligament and calcaneofibular l igament. Subtalar joint effusion Reviewed by: Desmond Noble MD on 02/13/2021 4:48 PM PDT Approved by: Desmond Noble MD on 02/13/2021 4:48 PM PDT Station ID: [id number]
== END 2021-02-13 23:59 | disposition home or self-care (01) ==
LOC: DI 15:00
PROVIDERS: ATTEND Podiatrist
DX: M76.72 Peroneal tendinitis, left leg (principal); M65.872 Other synovitis and tenosynovitis, left ankle and foot; S93.422A Sprain of deltoid ligament of left ankle, initial encounter; S93.492A Sprain of other ligament of left ankle, initial encounter; S93.412A Sprain of calcaneofibular ligament of left ankle, initial encounter; M47.816 Spondylosis without myelopathy or radiculopathy, lumbar region; M48.061 Spinal stenosis, lumbar region without neurogenic claudication; M51.36 Other intervertebral disc degeneration, lumbar region; M47.817 Spondylosis without myelopathy or radiculopathy, lumbosacral region; M48.07 Spinal stenosis, lumbosacral region

== ENCOUNTER 2021-04-09 18:20 | Emergency (ER) | payer OTHER ==
[2021-04-09] MEDS ORDERED: SODIUM CHLORIDE 0.9% 1,000 ML IV STA (18:54)
--- NOTE | 2021-04-09 18:56 | ED Physician Documentation ---
History of Present Illness - Stated complaint Stated Complaint: DIZZY,LOST FEELING IN LEGS - Chief complaint Chief Complaint: Neuro - Additonal information Additional information: 45-year-old female presents emergency department for evaluation of sudden onset loss of sensation in her lower extremities. She reports that she had been taking a shower for about 20 minutes. She was laying on her bed to cool off and have been going on for about 10 minutes when she sat up and felt suddenly dizzy. Following this she began to feel like she was having a seizure in her lower legs and when she stood up she lost sensation in her legs and fell to the ground. She does have a history of chronic low back pain and recently underwent an MRI which showed degenerative disc disease however she reports that the symptoms today are different than what she knows to be her typical back pain and spasms. She did not have any loss of bowel or bladder function. She denies that she had chest pain or shortness of air. She has no unilateral leg swelling. She is not taking any hormones. At this time she has normal sensation motor function and cardiovascular exam of her lower extremities. Review of Systems Constitutional: denies: Fever, Chills Eyes: reports: Reviewed and negative Nose: reports: Reviewed and negative Throat: reports: Reviewed and negative Cardiac: reports: Reviewed and negative Respiratory: reports: Reviewed and negative GI: reports: Reviewed and negative : reports: Reviewed and negative Skin: reports: Reviewed and negative Neurologic: reports: Focal weakness, Numbness. denies: Generalized weakness, Difficulty speaking Psychiatric: reports: Reviewed and negative PD PAST MEDICAL HISTORY - Past Medical History Cardiovascular: None Respiratory: None Neuro: None Endocrine/Autoimmune: None GI: GERD SHIRT PRESSER: None : None HEENT: None Psych: Depression Musculoskeletal: Fibromyalgia, Chronic back pain Derm: Eczema - Past Surgical History Past Surgical History: Yes General: Cholecystectomy Ortho: Carpal Tunnel surgery, Other HEENT: Tonsil/Adenoidectomy - Present Medications Home Medications: Ambulatory Orders Medication Instructions Recorded Confirmed FLUoxetine [PROzac] 80 mg PO DAILY 06/28/15 08/31/18 Cyclobenzaprine [Flexeril] 10 mg PO TID PRN #20 tablet 11/30/17 08/31/18 Ibuprofen [Motrin] 400 mg PO Q6H PRN #30 tablet 11/30/17 08/31/18 Lidocaine Patch 5% [Lidoderm Patch] 1 each TOP DAILY PRN #10 patch 11/30/17 08/31/18 Pantoprazole [Protonix] 20 mg DAILY 11/30/17 08/31/18 traMADol [Ultram] 50 - 100 mg PO Q6H PRN #20 tablet 04/28/18 08/31/18 Albuterol Sulf [Ventolin Hfa 1 - 2 puffs INH Q4HR PRN #1 inhaler 08/31/18 Inhaler] Naproxen [EC-Naproxen] 500 mg PO BID #20 tablet. 05/21/20 Oxycodone HCl/Acetaminophen 1 each PO Q6H PRN #20 tablet 05/21/20 [Percocet 5-325 mg Tablet] Oxycodone HCl/Acetaminophen 1 each PO Q6H PRN #18 tablet 05/30/20 [Percocet 5-325 mg Tablet] Valacyclovir HCl [Valtrex] 1,000 mg PO TID #15 tablet 05/30/20 dexAMETHasone [Decadron] 4 mg PO DAILY #5 tablet 05/30/20 - Allergies Allergies/Adverse Reactions: Allergies Allergy/AdvReac Type Severity Reaction Status Date / Time hydrocodone bitartrate * AdvReac Unknown Headache Verified 05/30/20 15:27 [From Vicodin] - Social History Does the pt smoke?: No Smoking Status: Never smoker Does the pt drink ETOH?: No Does the pt have substance abuse?: No - Immunizations Immunizations are current?: Yes - POLST Patient has POLST: No PD ED PE EXPANDED - General General: Alert, No acute distress - Neck Neck: No: Adenopathy - Cardiac Cardiac: Regular Rate, Radial strong equal, Pedal strong equal, Cap refill < 2 sec - Respiratory Respiratory: Clear to ausultation wendy. No: Distress, Labored - Abdomen Abdomen: Normal Bowel sounds. No: Tender to palpation - Back Back: Normal exam. No: Vertebral tenderness, Soft tissue tenderness - Extremities Extremities: Normal, Other (motor strength 5/5 bilaterally at hip, knee, ankle. Normal sensation. normal gait. 2+ patellar reflexes bilaterally). No: Deformity, Tenderness, Pedal edema bilateral, Right calf TTP/cord, Left calf TTP/cord - Neuro Neuro: Alert and Oriented X 3, CNII-XII intact, Cerebellar nl, Normal gait, Normal finger nose, Normal speech - GCS Eye Opening: Spontaneous Motor: Obeys Commands Verbal: Oriented Total: 15 Results - Vitals Vitals: Vital Signs - 24 hr 04/09/21 04/09/21 04/09/21 18:24 18:36 19:30 Temperature 36.4 C L Heart Rate 114 H 105 H 99 Heart Rate [ Sitting] Heart Rate [ Standing] Heart Rate [ Supine] Respiratory 18 22 19 Rate Blood Pressure 148/92 H 146/87 H 123/79 Blood Pressure [Sitting] Blood Pressure [Standing] Blood Pressure [Supine] O2 Saturation 98 98 98 04/09/21 20:04 Temperature Heart Rate Heart Rate [ 99 Sitting] Heart Rate [ 106 H Standing] Heart Rate [ 95 Supine] Respiratory Rate Blood Pressure Blood Pressure 125/75 [Sitting] Blood Pressure 128/86 H [Standing] Blood Pressure 128/82 H [Supine] O2 Saturation Oxygen O2 Source Room air - EKG (time done) 1856 Rate: Rate (enter#) (100) Rhythm: Sinus tachycardia Yolyn: Normal Intervals: Normal MT QRS: Normal Ischemia: Normal ST segments Compare to prior EKG: Old EKG unavailable Computer interpretation: Agree with computer - Labs Labs: Laboratory Tests 04/09/21 04/09/21 04/09/21 19:01 19:01 19:01 WBC 8.5 RBC 4.46 Hgb 13.5 Hct 39.0 MCV 87.4 MCH 30.3 MCHC 34.6 RDW 12.2 Plt Count 341 MPV 8.7 Neut # (Auto) 4.8 Lymph # (Auto) 2.7 [place] # (Auto) 0.7 Eos # (Auto) 0.3 Baso # (Auto) 0.1 Absolute Nucleated RBC 0.00 Nucleated RBC % 0.0 Sodium 140 Potassium 3.0 L Chloride 103 Carbon Dioxide 26 Anion Gap 11.0 BUN 25 H Creatinine 0.9 Estimated GFR (MDRD) 67 L Glucose 125 H Calcium 9.7 Total Bilirubin 0.7 AST 20 ALT 25 Alkaline Phosphatase 60 Troponin I High Sens 4.6 Total Protein 7.6 Albumin 4.0 Globulin 3.6 Albumin/Globulin Ratio 1.1 Lipase 32 - Rads (name of study) CXR Radiology: Final report received (no acute process) PD MEDICAL DECISION MAKING - ED course Complexity details: reviewed results, re-evaluated patient, considered differential, d/w patient ED course: 45-year-old female presents emergency department for evaluation of sudden onset dizziness that occurred after she had gotten out of the shower and was laying on her bed. She reported that when she sat up after about 10 minutes she began to feel dizzy. When she stood up she suddenly lost sensation in her lower legs they buckled under her and she fell to the ground. She does have a longstanding history of low back pain and recently underwent an MRI of the lumbar spine which showed fairly significant degenerative disc disease however the patient denies that she was having back spasm or back pain at this moment. At the time of presentation here to the emergency department she had an unremarkable lower extremity exam with a normal gait, strength and reflexes. Screening labs showed no acute worrisome abnormalities though her potassium was noted to be mildly low at 3.0. This was repleted with 20 mEq of potassium. Patient's orthostatic vital signs were unremarkable and she had no focal neuro deficits. The etiology of her symptoms is not clear though I do suspect that what she had was an acute exacerbation of her low back pain that caused her legs to buckle. However she has no saddle anesthesia or loss of control bowel or bladder function and at this time appears to be pain-free and with a normal gait. She does not wish to be discharged home. Emergent return precautions were discussed. Departure - Departure Disposition: 01 Home, Self Care Clinical Impression: Dizziness, Leg weakness, bilateral, Hypokalemia Condition: Stable Record reviewed to determine appropriate education?: Yes Instructions: ED Dizziness UKO Comments: Denisse were seen in the emergency department today for sudden dizziness and then weakness and loss of sensation in your legs. As we discussed your exam today was rather unremarkable. Your vital signs were normal and your screening labs and EKG did not show any worrisome findings. I do suspect that you may have had an event related to the disc disease in your low back. However it seems to have been self-limiting at this time. At any point you find that the symptoms return, you lose control of your bowel or bladder function, have numbness or tingling between your legs then please return immediately to the ER for second evaluation.
[2021-04-09 19:12] LABS: BASOPHILS # (AUTO) 0.1 10^3/uL (0.0-0.1); BASOPHILS % (AUTO) 0.6 %; EOSINOPHILS # (AUTO) 0.3 10^3/uL (0.0-0.7); EOSINOPHILS % (AUTO) 3.2 %; HGB - HEMOGLOBIN 13.5 g/dL (12.0-16.0); LYMPHOCYTES # (AUTO) 2.7 10^3/uL (1.5-3.5); LYMPHOCYTES % (AUTO) 31.4 %; MEAN CORPUSCULAR HEMOGLOBIN 30.3 pg (27.0-31.0); MEAN CORPUSCULAR HGB CONC 34.6 g/dL (32.0-36.0); MEAN CORPUSCULAR VOLUME 87.4 fL (81.0-99.0); MEAN PLATELET VOLUME 8.7 fL (7.9-10.8); MONOCYTES # (AUTO) 0.7 10^3/uL (0.0-1.0); MONOCYTES % (AUTO) 7.8 %; NEUTROPHILS # (AUTO) 4.8 10^3/uL (1.5-6.6); NEUTROPHILS % (AUTO) 56.2 %; PLT - PLATELET COUNT 341 10^3/uL (130-450); RED BLOOD COUNT 4.46 10^6/uL (4.20-5.40); RED CELL DISTRIBUTION WIDTH 12.2 % (12.0-15.0); WHITE BLOOD COUNT 8.5 x10^3/uL (4.8-10.8)
--- NOTE | 2021-04-09 19:28 | XRAY Report ---
PROCEDURE: Chest 1 View X-Ray INDICATIONS: chest pain TECHNIQUE: One view of the chest was acquired. COMPARISON: 08/31/2018 FINDINGS: Surgical changes and devices: None. Lungs and pleura: No pleural effusions or pneumothorax. Lungs are clear. Mediastinum: Mediastinal contours appear normal. Heart size is normal. Bones and chest wall: No suspicious bony lesions. Overlying soft tissues appear unremarkable. IMPRESSION: No acute process. Reviewed by: Katlyn Prieto MD on 04/09/2021 7:27 PM PDT Approved by: Katlyn Prieto MD on 04/09/2021 7:27 PM PDT Station ID: [id number]
[2021-04-09 19:39] LABS: ALBUMIN/GLOBULIN RATIO 1.1 (1.0-2.2); BILIRUBIN,TOTAL 0.7 mg/dL (0.2-1.0); CALCIUM 9.7 mg/dL (8.5-10.3); CREATININE 0.9 mg/dL (0.4-1.0); TOTAL PROTEIN 7.6 g/dL (6.7-8.2)
[2021-04-09] MEDS ORDERED: POTASSIUM CHLORIDE 20 MEQ/15 ML UDC PO SCH (20:00)
[2021-04-09 20:05] VITALS: BP 128/82
== END 2021-04-09 20:21 | disposition home or self-care (01) ==
LOC: ED 18:20
DX: R42 Dizziness and giddiness (principal); E87.6 Hypokalemia; R29.898 Other symptoms and signs involving the musculoskeletal system; M51.36 Other intervertebral disc degeneration, lumbar region; R00.0 Tachycardia, unspecified
CPT/HCPCS: 36415; 71045; 80053; 83690; 84484; 85025; 93005; 96360; 99284; A9270

== ENCOUNTER 2021-05-07 08:46 | Emergency (ER) | payer OTHER ==
[2021-05-07 08:59] VITALS: BP 129/85
[2021-05-07] MEDS ORDERED: KETOROLAC 60 MG/2 ML VIAL IM STA (09:32)
--- NOTE | 2021-05-07 09:35 | ED Physician Documentation ---
PD HPI UPPER EXT INJURY - Stated complaint Stated Complaint: LT SHOULDER/ARM INJURY - Chief complaint Chief Complaint: Trauma Ext - History obtained from History obtained from: Patient - History of Present Illness Location: Left, Shoulder Type of injury: Fall Where injury occurred: Home Timing - onset: Enter time (0030), Last night Timing - duration: Hours Timing - details: Abrupt onset, Still present Improved by: Rest, Immobilization Worsened by: Moving, Palpating Associated symptoms: No: Weakness, Numbness, Tingling, Swelling, Discolored Contributing factors: No: Anticoagulated Similar symptoms before: Has not had sx before Recently seen: Clinic - Additonal information Additional information: 45-year-old female was getting into her fifth wheel last night when she tripped forward struck her head and jammed her left shoulder. She had significant pain in her shoulder and a headache. She did not develop nausea, she does state that she is having some trouble concentrating but denies any lightheadedness or dizziness. Review of Systems Constitutional: denies: Fever Eyes: denies: Decreased vision Ears: denies: Ear pain Nose: denies: Congestion Throat: denies: Sore throat Cardiac: denies: Chest pain / pressure, Palpitations Respiratory: denies: Dyspnea, Cough GI: denies: Abdominal Pain, Nausea, Vomiting, Constipation, Diarrhea : denies: Dysuria, Frequency Skin: denies: Rash Musculoskeletal: reports: Back pain (chronic), Extremity pain, Joint pain. 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 05/21/20 05/07/[address] [Voltaren] 75 mg PO DAILY 05/07/21 05/07/21 Duloxetine HCl [Cymbalta] 60 mg PO DAILY 05/07/21 05/07/21 Methylphenidate HCl 18 mg PO DAILY 05/07/21 05/07/21 [Methylphenidate HCl ER] hydroCHLOROthiazide [Hydrodiuril] 25 mg PO DAILY 05/07/21 05/07/21 - Allergies Allergies/Adverse Reactions: Allergies Allergy/AdvReac Type Severity Reaction Status Date / Time hydrocodone bitartrate * AdvReac Unknown Headache Verified 05/07/21 08:59 [From Vicodin] - Social History Does the pt smoke?: No Smoking Status: Never smoker Does the pt drink ETOH?: No Does the pt have substance abuse?: No - Immunizations Immunizations are current?: Yes - POLST Patient has POLST: No PD ED PE NORMAL - Vitals Vital signs reviewed: Yes (Hypertensive) - General General: Alert and oriented X 3, Well developed/nourished, Other (Appears to be in pain with saw runner tone and flattened affect.) - HEENT HEENT: PERRL, EOMI, Other (There is pain to palpation of the forehead over the glabella without specific mass or crepitance or step-off.) - Neck Neck: Supple, no meningeal sign, No bony TTP - Respiratory Respiratory: No respiratory distress - Derm Derm: Normal color, Warm and dry, No rash - Extremities Extremities: No deformity, No edema, Other (There is tenderness to the deltoid and to the supraspinatus on the left side there is reduced range of motion with abduction. She is able to hold the arm in abduction for a brief period of time she is not able to move the arm into abduction herself. No pain to rotation. Distal neurovascular intact) Results - Vitals Vitals: Vital Signs - 24 hr 05/07/21 08:57 Temperature 36.0 C L Heart Rate 95 Respiratory 16 Rate Blood Pressure 129/85 H O2 Saturation 98 Oxygen O2 Source Room air - Rads (name of study) shoulder Radiology: Prelim report reviewed (Impression: Normal shoulder plain films.), EMP read indepedently, See rad report head Radiology: Prelim report reviewed (Impression: No intracranial hemorrhage is seen. No significant intracranial abnormality is seen.), EMP read indepedently, See rad report PD MEDICAL DECISION MAKING - ED course Complexity details: considered differential, d/w patient ED course: 45-year-old female has had a concussion when she fell forward and struck her head. She denies any pain in her neck, denies any nausea, she is having some difficulty concentrating and a headache. She has some injury to her left shoulder as well. She is having a difficult time moving it into abduction. She is administered Toradol [address] of her head is obtained as well as an x-ray of her shoulder.She is placed into a sling with the left shoulder her CT and plain film are normal. Departure - Departure Disposition: 01 Home, Self Care Clinical Impression: Sprain of left shoulder Qualifiers: Encounter type: initial encounter Shoulder sprain type: unspecified sprain Qualified Code(s): S43.402A - Unspecified sprain of left shoulder joint, initial encounter Concussion Qualifiers: Encounter type: initial encounter Loss of consciousness presence/duration: without LOC Qualified Code(s): S06.0X0A - Concussion without loss of consciousness, initial encounter Condition: Stable Instructions: ED Concussion, ED Sprain Shoulder Follow-Up: DEDE CHRISTINE MD [Primary Care Provider] - Comments: Denisse, it looks like you have sprained your shoulder and you have had a concussion. The recommendation today is to use the sling for comfort and to make certain that you remove this several times per day to do range of motion exercises. You may have trouble with this shoulder from anywhere from several days to weeks. If you have trouble with this for more than a week follow-up with orthopedics. Forms: Activity restrictions
--- NOTE | 2021-05-07 10:14 | CT Report ---
PROCEDURE: HEAD WO INDICATIONS: concussion headache TECHNIQUE: Noncontrast 4.5 mm thick angled axial sections acquired from the foramen magnum to the vertex. For r adiation dose reduction, the following was used: automated exposure control, adjustment of mA and/or kV according to patient size. COMPARISON: 01/24/2020, 12/17/2012 FINDINGS: Image quality: Excellent. CSF spaces: Basal cisterns are patent. No extra-axial fluid collections. Ventricles are normal in size and shape. Brain: No midline shift. No intracranial masses or hemorrhage. Whitley-white matter interface is norm al. Skull and face: Calvarium and visualized facial bones are intact, without suspicious lesions. Sinuses: Visualized sinuses and mastoids are clear. IMPRESSION: No intracranial hemorrhage is seen. No significant intracranial abnormality is seen. Reviewed by: Harshil Louis MD on 05/07/2021 9:12 AM [facility] Approved by: Harshil Louis MD on 05/07/2021 9:12 AM [facility] Station ID: [id number]
--- NOTE | 2021-05-07 10:33 | XRAY Report ---
PROCEDURE: Shoulder 3 View LT INDICATIONS: fall jammed shoulder TECHNIQUE: 3 views of the shoulder were acquired. COMPARISON: None. FINDINGS: Bones: No fractures or dislocations. No suspicious bony lesions. Visualized ribs appear intact. Soft tissues: No suspicious soft tissue calcifications. The visualized lung demonstrates a normal a ppearance. IMPRESSION: Normal shoulder plain films. If it would be helpful for clinical management decision making, please consider a dedicated, schedule d shoulder MRI for further evaluation (assuming that there is no contraindication). Reviewed by: Harshil Louis MD on 05/07/2021 9:32 AM [facility] Approved by: Harshil Louis MD on 05/07/2021 9:32 AM [facility] Station ID: [id number]
== END 2021-05-07 10:55 | disposition home or self-care (01) ==
LOC: ED 08:46
DX: S06.0X0A Concussion without loss of consciousness, initial encounter (principal); S43.402A Unspecified sprain of left shoulder joint, initial encounter; W01.10XA Fall on same level from slipping, tripping and stumbling with subsequent striking against unspecified object, initial encounter
CPT/HCPCS: 96372; 99284

== ENCOUNTER 2021-07-26 15:12 | Emergency (ER) | payer OTHER ==
[2021-07-26 15:19] VITALS: BP 135/84
[2021-07-26] MEDS ORDERED: oxyCODONE 5 MG TABLET PO STA (16:06)
[2021-07-26] MEDS ORDERED: IBUPROFEN 800 MG TABLET PO STA (16:06)
--- NOTE | 2021-07-26 16:17 | ED Physician Documentation ---
PD HPI LOWER EXT INJURY - Stated complaint Stated Complaint: R LEG INJ - Chief complaint Chief Complaint: Ext Problem - History obtained from History obtained from: Patient - History of Present Illness PD HPI LOW EXT INJURY LOCATION: Right, Lower leg (hamstring) Pain level max: 0 Pain level now: 0 Improved by: Rest Worsened by: Moving, Palpating - Additional information Additional information: 45-year-old female states that she was at work walking down the stairs when she excellently slipped and feels like she pulled her right hamstring. She states pain with walking. Worse with movement, better with rest. No head, neck, back pain. No loss of consciousness. Has not taken anything for this. 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 05/21/20 05/07/[address] [Voltaren] 75 mg PO DAILY 05/07/21 05/07/21 Duloxetine HCl [Cymbalta] 60 mg PO DAILY 05/07/21 05/07/21 Methylphenidate HCl 18 mg PO DAILY 05/07/21 05/07/21 [Methylphenidate HCl ER] hydroCHLOROthiazide [Hydrodiuril] 25 mg PO DAILY 05/07/21 05/07/21 Meloxicam [Mobic] 15 mg PO DAILY PRN #20 tablet 07/26/21 Oxycodone HCl/Acetaminophen 1 - 2 each PO Q6H PRN #14 tablet 07/26/21 [Percocet 5-325 mg Tablet] - Allergies Allergies/Adverse Reactions: Allergies Allergy/AdvReac Type Severity Reaction Status Date / Time hydrocodone bitartrate * AdvReac Unknown Headache Verified 07/26/21 15:16 [From Vicodin] - Social History Does the pt smoke?: No Smoking Status: Never smoker Does the pt drink ETOH?: No Does the pt have substance abuse?: No - Immunizations Immunizations are current?: Yes - POLST Patient has POLST: No PD ED PE NORMAL - Vitals Vital signs reviewed: Yes - General General: Alert and oriented X 3, No acute distress - HEENT HEENT: Moist mucous membranes - Neck Neck: Supple, no meningeal sign - Cardiac Cardiac: RRR - Respiratory Respiratory: No respiratory distress, Clear bilaterally - Derm Derm: Warm and dry - Extremities Extremities: Other (Tender to palpation over the right hamstring. No swelling. No deformity. Neurovascularly intact otherwise normal exam of the right lower extremity) - Neuro Neuro: Alert and oriented X 3 Results - Vitals Vitals: Vital Signs - 24 hr 07/26/21 15:16 Temperature 36.5 C Heart Rate 97 Respiratory 16 Rate Blood Pressure 135/84 H O2 Saturation 99 Oxygen O2 Source Room air - Rads (name of study) R Femur x-ray Radiology: Final report received, EMP read contemporaneously, See rad report PD MEDICAL DECISION MAKING - ED course Complexity details: reviewed results, re-evaluated patient, considered differential, d/w patient ED course: 45-year-old female with a right hamstring strain. Given crutches. Will place on pain medication for home. We will have her follow-up with her doctor for further care. No evidence of complete rupture. Patient counseled regarding signs and symptoms for which I believe and urgent re-evaluation would be necessary. Patient with good understanding of and agreement to plan and is comfortable going home at this time This document was made in part using voice recognition software. While efforts are made to proofread this document, sound alike and grammatical errors may occur. I am prescribing a short course of short-acting opioid pain medication for this patient. 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 I have discussed that the opioids are for short term therapy only, and will not be refilled from the ED. Departure - Departure Disposition: Home, Self Care Clinical Impression: Strain of right hamstring Qualifiers: Encounter type: initial encounter Qualified Code(s): S76.311A - Strain of muscle, fascia and tendon of the posterior muscle group at thigh level, right thigh, initial encounter Condition: Good Instructions: ED Strain Muscle Ext Follow-Up: DEDE CHRISTINE MD [Primary Care Provider] - Within 1 week Prescriptions: Meloxicam [Mobic] 15 mg PO DAILY PRN #20 tablet PRN Reason: pain Oxycodone HCl/Acetaminophen [Percocet 5-325 mg Tablet] 1 - 2 each PO Q6H PRN #14 tablet PRN Reason: pain Comments: Please follow-up with your doctor for further care. Return if you worsen. Your prescriptions were sent to [facility] in [place]. You may bear weight as to lerated. I am prescribing a short course of narcotic pain medication for you. These are potentially dangerous and addictive medications that should be used carefully. These medications may constipate you. Take an [id number] stool softener (docusate) twice daily with plenty of water while taking these medications. If you go 24 hours without a bowel movement, take [id number]-hva-[id number] miralax, per package instructions. Do not drink or drive while taking these medications. If you received narcotic or sedating medications while in the emergency department, do not drive for 24 hours. Store this medication in a safe, secure place and out of reach of children. It is a violation of federal law to give or sell this medication to another person or to use in a manner other than prescribed. The ED will not refill narcotic prescriptions, including prescriptions lost or stolen. To dispose of unwanted medications: 1. [facility] at [address] in [facility] has a medication drop box. They accept prescription medications (in pill form) Saturday through Saturday 9:00 a.m. to 5:00 p.m. 2. [employer] accepts prescription medications (in pill form only) for disposal year round. Call for more information. 3. Contact the [facility] for the next [facility] sponsored prescription drug collection event. , [phone], or [phone]; Forms: Activity restrictions Discharge Date/Time: 07/26/21 17:15
--- NOTE | 2021-07-26 16:20 | XRAY Report ---
PROCEDURE: Femur 2V RT INDICATIONS: fall, R leg pain TECHNIQUE: 2 views of the femur were acquired. COMPARISON: None. FINDINGS: Bones: No fractures or dislocations. No suspicious bony lesions. Soft tissues: No suspicious soft tissue calcifications or masses. IMPRESSION: No fracture. No acute osseous lesion. If there are persistent symptoms or continued clinical concern for pathology, then repeat plain film radiographs (7-10 days) or advanced imaging (CT, MR, bone scan) should be considered for further evaluation. Reviewed by: Meena Boucher MD, PhD on 07/26/2021 4:19 PM PST Approved by: Meena Boucher MD, PhD on 07/26/2021 4:19 PM [facility] Station ID: [id number]
== END 2021-07-26 17:15 | disposition home or self-care (01) ==
LOC: ED 15:12
DX: S76.311A Strain of muscle, fascia and tendon of the posterior muscle group at thigh level, right thigh, initial encounter (principal); W10.9XXA Fall (on) (from) unspecified stairs and steps, initial encounter; Y93.01 Activity, walking, marching and hiking; Y99.0 Civilian activity done for income or pay
CPT/HCPCS: 73552; 99282; 99283; A9270

== ENCOUNTER 2022-11-20 12:41 | Outpatient (CLI) | payer OTHER ==
--- NOTE | 2022-11-20 13:25 | Sleep Patient Instructions ---
Sleep Center Visit Summary - Patient Visit Information Reason for Visit: Annual visit for PAP therapy - Patient Instructions Additional Instructions: You will continue with CPAP therapy with pressure set at 8-12 cmH2O. We encourage you to continue to try to lose weight. Please follow up with the sleep care office in 1-2 months to recheck compliance. - Clinic Information Contact: [facility] [address] [place] [address] [email or web address] T: [phone]
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
[2022-11-20 13:28] VITALS: BP 128/78
== END 2022-11-20 12:42 | disposition home or self-care (01) ==
LOC: SC 12:41
PROVIDERS: ATTEND Nurse Practitioner Family
DX: G47.33 Obstructive sleep apnea (adult) (pediatric) (principal); E66.01 Morbid (severe) obesity due to excess calories; Z68.41 Body mass index [BMI] 40.0-44.9, adult
CPT/HCPCS: 99212; 99213

== ENCOUNTER 2023-01-22 15:34 | Outpatient (CLI) | payer OTHER ==
--- NOTE | 2023-01-22 15:50 | Sleep Patient Instructions ---
Sleep Center Visit Summary - Patient Visit Information Reason for Visit: Two month followup for PAP therapy - Patient Instructions Additional Instructions: You were here for follow up of CPAP therapy. You will be continued on CPAP therapy with pressure at 8-12 cmH2O. You should follow up with sleep care in 1-2 months. You may contact us sooner for any questions or concerns. - Clinic Information Contact: [facility] [address] [place] [id number] [email or web address] T: [phone]
--- NOTE | 2023-01-22 15:55 | SLEEP CARE CONSULTATION ---
Information from patient questionnaire entered by Anibal Das. I have reviewed and concur with the information entered by Anibal Das. This document represents the service I personally performed and the decisions made by , Alexandra Mojica ARNP. History of Present Illness Service Date and Time: 01/22/2023 1534 Previous diagnosis: Severe, Obstructive Sleep Apnea-Hypopnea Syndrome AHI: 45.9 (in 2011) Reason for follow up: other (2MONTH F/U) Equipment type: CPAP (RESMED 10, s/u 03/2020) Equipment obtained from: Other ([facility], getting supplies) Mask style: Nasal Backup mask available: No (will keep old mask when replaced) Last cushion change: 2 weeks Prior sleep studies: Yes Year and Where: 2011 [facility] Type of Sleep Study: Polysomnography HPI additional information: CHRISTINE WADE was diagnosed to have severe, AHI 45.9, obstructive sleep apnea-hypopnea syndrome and returned today for CPAP therapy two month follow-up. Sleep Study - Results Type of Sleep Study: Polysomnography Prior sleep studies: Yes Year and Where: 2011 [facility] CPAP Compliance Data - Data Reviewed with Patient Average duration of nightly device use: 4 hours 37 minutes Compliance rate %: 45 (40/60 days used) Current pressure setting (cmH2O): 8-12 Average residual AHI: 1.4 Central apnea: 0 Obstructive apnea: 1.1 Hypopnea: 0.2 Average large leak: 0.2 L/min Subjective Patient concerns: denies: aerophagia, mask discomfort, air blowing in eyes, mask leak noise, condensation in mask/hose, nasal congestion, dry mouth, nose, throat, epistaxis Observed to snore while using device: No Current pressure setting perceived as: comfortable On therapy, patient: reports: sleeping better, awakening more refreshed, being more awake and alert during the day, more rested overall. denies: drowsiness while driving Initial [place] Sleepiness Scale score: 17 (in 2019 (4 in 2011) Current [place] Sleepiness Scale score: 11 (01/22/23) Allergies and Home Medications Known drug allergies: Yes (as listed) Drug allergies reviewed: Yes Home medication list reviewed: Yes (Mobic) Allergy and home medication list: Allergies hydrocodone bitartrate * [From Vicodin] Adverse Reaction (Unknown, Verified 01/21/23 15:32) Headache Review of Systems Review of systems same as previous: Yes (no changes) Physical Exam Vital signs obtained and entered by: ANIBAL Harrington MA Blood Pressure: 128/76 (LEFT ARM) Cuff size: long Heart Rate: 94 O2 Saturation: 97 Height: 5 ft 9 in Weight: 273 lb 12.8 oz Body Mass Index: 40.4 BMI Classification: Morbidly Obese Impression and Plan 1. Obstructive Sleep Apnea-Hypopnea Syndrome, severe, with fair treatment compliance and good apnea control. On CPAP therapy, the patient has better sleep quality and is more rested overall. Patient has been able to bring up her compliance in a fair range. She states that she is definitely feeling a difference when using her device and feels the pressure is comfortable. Patient's apnea severity and rationale for treatment to reduce apnea, improve sleep quality and reduce cardiovascular and cerebrovascular events was reviewed. I also reviewed the benefit of consistent device use of CPAP for gastric reflux, depression and anxiety. 2. Obesity, unspecified. Currently patients BMI is 40.4. Obesity increases the risk of apnea, CPAP pressure requirements and overall health risks especially cardiovascular and diabetes. Thus patient is advised to lose weight. * Continue auto CPAP pressure at 8-12 cmH2O * Notify me if snoring with mask or feeling that the pressure is too much or too little * Attempt to lose weight * Call this office if any problems using CPAP * Return for follow up in 1-2 months, or sooner if concerns arise Counseling Topics: Spare mask, Weight loss health impact Visit Type: In Office Time Spent with Patient (minutes): 20 Provider Statement: I spent 100% of the Face to Face Visit with the patient with greater than 50% spent counseling the patient and coordination of care.
[2023-01-22 16:10] VITALS: BP 128/76
== END 2023-01-22 15:35 | disposition home or self-care (01) ==
LOC: SC 15:34
PROVIDERS: ATTEND Nurse Practitioner Family
DX: G47.33 Obstructive sleep apnea (adult) (pediatric) (principal); E66.01 Morbid (severe) obesity due to excess calories; Z68.41 Body mass index [BMI] 40.0-44.9, adult
CPT/HCPCS: 99212; 99213

== ENCOUNTER 2023-05-09 16:05 | Outpatient (CLI) | payer OTHER ==
--- NOTE | 2023-05-09 15:55 | SLEEP CARE CONSULTATION ---
Information from patient questionnaire entered by Anibal Das. I have reviewed and concur with the information entered by Anibal Das. This document represents the service I personally performed and the decisions made by , Alexandra Mojica ARNP. History of Present Illness Service Date and Time: 05/09/2023 1540 Previous diagnosis: Severe, Obstructive Sleep Apnea-Hypopnea Syndrome AHI: 45.9 (in 2011) Reason for follow up: other (2 MONTH F/U) Equipment type: CPAP (RESMED 10) Equipment obtained from: Other ([facility], getting supplies) Mask style: Nasal (medium cushion) Mask brand: Respironics (Dreamwear) Backup mask available: Yes Last cushion change: 1 month Prior sleep studies: Yes Year and Where: 2011 [facility] Type of Sleep Study: Polysomnography HPI additional information: CHRISTINE WADE was diagnosed to have severe, AHI 45.9, obstructive sleep apnea-hypopnea syndrome and returns via video visit today for CPAP therapy 2 month follow-up. Sleep Study - Results Type of Sleep Study: Polysomnography Prior sleep studies: Yes Year and Where: 2011 [facility] CPAP Compliance Data - Data Reviewed with Patient Average duration of nightly device use: 5 hours 12 minutes Compliance rate %: 40 (29/60 days used) Current pressure setting (cmH2O): 8-12 Average residual AHI: 1.5 Central apnea: 0 Obstructive apnea: 1.2 Average large leak: 4.3 L/min Subjective Missed days of use due to: reports: illness, other (lost mask cushion) Patient concerns: denies: aerophagia, mask discomfort, air blowing in eyes, mask leak noise, condensation in mask/hose, nasal congestion, dry mouth, nose, throat, epistaxis Observed to snore while using device: No Current pressure setting perceived as: comfortable On therapy, patient: reports: sleeping better, awakening more refreshed, being more awake and alert during the day, more rested overall. denies: drowsiness while driving Initial [place] Sleepiness Scale score: 17 (in 2019 (4 in 2011) Current [place] Sleepiness Scale score: 9 (05/09/23) Allergies and Home Medications Known drug allergies: Yes (as listed) Drug allergies reviewed: Yes Home medication list reviewed: Yes (no changes) Allergy and home medication list: Allergies hydrocodone bitartrate * [From Vicodin] Adverse Reaction (Unknown, Verified 05/08/23 10:26) Headache Review of Systems Review of systems same as previous: Yes (NO CHANGE) Physical Exam Vital signs obtained and entered by: ANIBAL Harrington MA Height: 5 ft 9 in (per pt) Weight: 270 lb (PER PT) Body Mass Index: 39.9 BMI Classification: Obese Impression and Plan 1. Obstructive Sleep Apnea-Hypopnea Syndrome, severe, with fair treatment compliance and good apnea control. On CPAP therapy, the patient has better sleep quality and is more rested overall. Patient has significant improvement of their sleep apnea and is satisfied with current CPAP therapy. Patient still struggling with compliance but she is consciously trying to use it every night. She recently misplaced her mask cushion and has been unable to use her machine for a few nights. She states she will find a replacement and use it tonight. I will have her follow-up in about 3 months to check in. Patient's apnea severity and rationale for treatment to reduce apnea, improve sleep quality and reduce cardiovascular and cerebrovascular events was reviewed. I also reviewed the benefit of consistent device use of CPAP for gastric reflux, depression and anxiety. 2. Obesity, unspecified. Currently patients BMI is 39.9. Obesity increases the risk of apnea, CPAP pressure requirements and overall health risks especially cardiovascular and diabetes. Thus patient is advised to lose weight. * Continue auto CPAP pressure at 8-12 cmH2O * Notify me if snoring with mask or feeling that the pressure is too much or too little * Attempt to lose weight * Call this office if any problems using CPAP * Return for follow up in 3 months, or sooner if concerns arise Counseling Topics: Spare mask, Weight loss health impact Follow up with Sleep Care in: 3 months Visit Type: Telehealth Video Video Type: [employer] Patient Location: Car Location of Provider: Office Patient agrees and consents to this telehealth visit type: Yes Patient agrees to have their insurance billed: Yes Time Spent with Patient (minutes): 16 Provider Statement: I spent 100% of the Telehealth Video Call with the patient with greater than 50% spent counseling the patient and coordination of care.
== END 2023-05-09 16:06 | disposition home or self-care (01) ==
LOC: SC 16:05
PROVIDERS: ATTEND Nurse Practitioner Family
DX: G47.33 Obstructive sleep apnea (adult) (pediatric) (principal); E66.9 Obesity, unspecified; Z68.39 Body mass index [BMI] 39.0-39.9, adult

== ENCOUNTER 2023-11-01 08:00 | Outpatient (CLI) | payer OTHER | END 2023-11-01 23:59 | disposition home or self-care (01) | LOC: LAB 08:00 | PROVIDERS: ATTEND Nurse Practitioner | DX: N61.1 Abscess of the breast and nipple (principal) | CPT/HCPCS: 87070; 87077; 87181; 87205 ==